=== PATIENT | male | born 1965 | race Caucasian/White ===

== ENCOUNTER → 2017-02-11 | Outpatient (CLI) | payer MEDICAID ==
[2017-02-11 13:03] LABS: HEMOGLOBIN 14.4 g/dL (14.1-18.0); LYMPH # 1.6 K/mm3 (0.7-4.5); LYMPH % 41.1 % (10-50)
[2017-02-11 14:19] LABS: BUN 18 mg/dL (7-18)
[2017-02-11 14:38] LABS: GFR (ESTIMATED) 78 ML/MIN (>60)
== END ==
LOC: CARL-LAB 08:12
PROVIDERS: Nurse Practitioner Family
DX: E78.1 Pure hyperglyceridemia (principal); K21.9 Gastro-esophageal reflux disease without esophagitis; Z79.899 Other long term (current) drug therapy

== ENCOUNTER 2017-06-10 11:03 | Emergency (ER) | payer MEDICAID ==
[~2017-06-10] VITALS: Ht 172.7 cm; Wt 88.5 kg
[2017-06-10] MEDS ORDERED: AVPAK EXTENDED100 MG PO (11:11)
[2017-06-10] MEDS ORDERED: METHADONE 10 MG10 MG PO (11:11)
--- OUTSIDE RECORDS SUMMARY | 2017-06-10 11:39 | External Medical Summary Rpt | CCD ---
Author Author , RAYSA TABARES Address Unknown Phone [email or web address] Team Providers Care Systems Eng Name Role Phone FABIAN SANFORD, Unavailable Unavailable MLuciano.P.S.CVerna, FABIAN SANFORD M.D.P.S.CVerna SANFORD, Unavailable Unavailable MD,PSC, FABIAN SANFORD MD,PSC AILIN PERALTA, Unavailable Unavailable AILIN PERALTA [facility] Unavailable Unavailable [facility], Unavailable Unavailable [facility], Unavailable Unavailable [facility] CHUERIN CH, YARED Unavailable Unavailable [facility] Unavailable Unavailable [place], Unavailable Unavailable [facility] Unavailable Unavailable EQUIPMENT, [facility] FINCHUM ELL, FINCHUM Unavailable Unavailable [facility] Unavailable Unavailable INC, [facility] RA PEDRAZA, Unavailable Unavailable RA PEDRAZA [facility], Unavailable Unavailable [facility] Unavailable Unavailable INC, [facility] JOSE MCFADDEN Unavailable Unavailable [facility] Unavailable Unavailable GROUP PS, [facility] Unavailable Unavailable [facility], [facility] Un[facility] Unavailable [facility], [facility] LORA KENNEDY, Unavailable Unavailable LORA KENNEDY VICTOR G, Unavailable Unavailable TAJ PRO JOSE T, Unavailable Unavailable RIDDHI SAAB MARSHALL Unavailable Unavailable [facility], Unavailable Unavailable [facility] Unavailable Unavailable [facility], Unavailable Unavailable [facility] Unavailable Unavailable AMBULANCE SE, [facility] SOKAN BAB, SOK[facility] BAB Unavailable Unavailable [facility], Unavailable Unavailable [facility] TAMAREN PEGGY, TAMAREN Unavailable Unavailable PEGGY TAMAREN, PAULINO, Unavailable Unavailable TAMAREN, PAULINO [facility] Unavailable Unavailable #[id number], [id number], Unavailable Unavailable [id number] Purpose Continuity of Care Document - 10-30-2007 through 2016 Problems Code Diagnosis DOS Provider Status [id number] PAIN IN 05-06-2017 FABIAN RIGHT POLLO SANFORD MD,PSC M5030 OT 05-06-2017 FABIAN CERVICAL MICKEY SANFORD MD,PSC DEGENERATIO N UNS CERV REGION M5136 OT 05-06-2017 FABIAN INTERVERTEB HI SANFORD MD,PSC DEGEN LUMBAR REGION [id number] SHELTER 05-06-2017 FABIAN CURRENT USE LINDA SANFORD OPIATE ,[facility] ANALGESIC J0140 ACUTE 03-04-2017 [facility] PANSINUSITI CLINIC S UNSPECIFIED J060 ACUTE 03-04-2017 [facility] LARYNGOPHAR [facility]INIC YNGITIS E781 PURE 02-11-2017 [facility] IDEMIA [facility] K219 GASTRO-ESOP 02-11-2017 [facility] DISEASE INC WITHOUT ESOPHAGITIS [id number] OTHER LONG 02-11-2017 [facility] CURRENT INC DRUG THERAPY [id number] OTHER 11-06-2016 FABIAN CERVICAL MICKEY SANFORD MD,PSC MID-CERV REG UNS LEVEL Z0100 ENCOUNTER 08-09-2016 ARACELIS EXAM EYES & VISION W/O ABNORMAL FIND M542 CERVICALGIA 07-16-2016 FABIAN SANFORD MD,PSC M545 LOW BACK 07-16-2016 FABIAN PAIN MD CLARIBEL,PSC E291 TESTICULAR 02-20-2016 [facility] HYPOFUNCTIO [place] N HOLDINGS N529 MALE 02-20-2016 [facility] ERECTILE [place] DYSFUNCTION HOLDINGS UNSPECIFIED N62 HYPERTROPHY 02-20-2016 [facility] OF BREAST [place] [facility]INGS R252 CRAMP AND 02-20-2016 [facility] SPASM [place] [facility]INGS R5383 OTHER 02-20-2016 [facility] FATIGUE [place] [facility] Z1321 ENCOUNTER 02-20-2016 [facility] FOR [place] SCREENING HOLDINGS FOR NUTRITIONAL DISORDER K210 GASTRO-ESOP 12-07-2015 [facility] DISEASE W/ ESOPHAGITIS K648 OTHER 12-07-2015 [facility] M6250 MUSCLE 11-16-2015 FABIAN WASTING & KAROL SANFORD MD,PSC UNSPECIFIED SITE K921 MELENA 10-26-2015 [facility] K5900 CONSTIPATIO 10-05-2015 JO[facility] CONTRERAS N UNSPECIFIED R12 HEARTBURN 10-05-2015 JO[facility] CONTRERAS Z800 FAMILY HX 10-05-2015 [facility] CONTRERAS MALIGNANT NEOPLASM DIGESTIVE ORGANS L46793 PAIN IN 08-08-2015 [facility] RIGHT ARM R200 ANESTHESIA 08-08-2015 [facility] OF SKIN 87866 UNSPEC 02-01-2015 [facility] EPILEPSY [place] WITHOUT HOLDINGS MENTION INTRACT EPILEPSY 23109 PAIN IN 02-01-2015 [facility] JOINT, [place] SHOULDER HOLDINGS REGION 7224 DEGENERATIO 07-22-2014 FABIAN N OF CL[facility]EL CERVICAL ,PSC INTERVERTEB RAL DISC V5869 LONG-TERM 07-22-2014 FABIAN (CURRENT) CLARIBEL USE OF ,PSC OTHER MEDICATIONS 61796 EFFUSION OF 07-20-2014 SOK[facility] BAB LOWER LEG JOINT V140 PERSONAL 07-20-2014 [facility] ALLERGY TO [facility]OSPITAL PENICILLIN V146 PERSONAL 07-20-2014 [facility] ALLERGY TO HOSPITAL ANALGESIC AGENT V1582 PERS HX 07-20-2014 [place] TOBACCO USE COMM[facility]ITY [facility] 1109 DERMATOPHYT 07-19-2014 [facility] OSIS OF CLINIC UNSPECIFIED SITE 7273 OTHER 07-19-2014 [facility] BURSITIS CLINIC DISORDERS 7821 RASH AND 07-19-2014 [facility] OTHER CLINIC NONSPECIFIC SKIN ERUPTION 63457 OTHER 06-30-2014 [place] CONVULSIONS [facility] V0481 NEED 05-27-2014 [facility] PROPHYLACTI CLINIC C VACCINATION &INOCULATIO N FLU 88074 ACUTE 05-24-2014 [facility] LARYNGITIS, CLINIC WITHOUT MENTION OF OBSTRUCTIO 14829 OBSTRUCTIVE 05-24-2014 [facility] CHRONIC CLINIC BRONCHITIS WITH EXACERBATIO N 34486 CRAMP OF 05-24-2014 [facility] LIMB [place] HOLDINGS 9598 INJURY 02-21-2014 [facility] OTH&UNSPEC [facility] OTH SPEC AMBULANCE SITES INCL SE MULTIPLE 81838 OTHER 10-05-2011 [facility] CHRONIC PAIN 7213 LUMBOSACRAL 10-05-2011 [facility] SPONDYLOSIS WITHOUT MYELOPATHY 9592 INJURY 10-05-2011 [facility] OTHER&UNSPE CIFIED SHOULDER&UP PER ARM 28784 GEN CONVUL 07-12-2011 TAMAREN PEGGY EPILEPSY W/O MENTION INTRACT EPILEPSY 496 CHRONIC 07-12-2011 TAMSTEVENN PEGGY AIRWAY OBSTRUCTION NEC 45332 SPASM OF 07-12-2011 TAMAREN PEGGY MUSCLE 7862 COUGH 07-12-2011 TAMAREN AUG 7230 CERVICALGIA 06-06-2011 [facility] ELL 7242 LUMBAGO 04-06-2011 [facility] 6827 CELLULITIS 01-11-2011 [facility] AND ABSCESS CLINIC PSC OF FOOT EXCEPT TOES 29308 OBSTRUCTIVE 11-23-2010 [facility] EQUIPMENT 90367 PAIN IN 11-10-2010 [facility] JOINT, CLINIC PSC LOWER LEG 7295 PAIN IN 11-10-2010 [facility] TISSUES OF LIMB 9599 INJURY 11-10-2010 [facility] OTHER AND [facility]IOLOG[facility] UNSPECIFIED ASSOCIAT UNSPECIFIED SITE V643 PROCEDURE 11-10-2010 [facility] NOT [facility]RI[facility] OUT FOR OTHER REASONS 07482 ASTHMA 09-25-2010 [facility] UNSPECIFIED CLINIC PSC WITH EXACERBATIO N 29264 CHEST PAIN 09-25-2010 [facility] UNSPECIFIED CLINIC PSC 9953 ALLERGY 09-25-2010 [facility] UNSPECIFIED CLINIC PSC NOT ELSEWHERE CLASSIFIED 490 BRONCHITIS 06-13-2010 [facility] NOT CLINIC PSC SPECIFIED ACUTE OR CHRONIC 30679 PAIN IN 01-23-2010 [facility] REGION AND PSC THIGH 56703 DEGEN 01-23-2010 [facility] LUMBAR/LUMB [facility]IOLOGY OSACRAL [facility]OCIATES INTERVERTEB PSC RAL DISC 12129 SHORTNESS 11-18-2009 [facility] OF BREATH [facility] PSC V7109 OBSERVATION 05-20-2009 [facility] OF OTHER RODERICK SANFORD M.D.P.S.C. MENTAL CONDITION 42217 UNSPECIFIED 04-04-2009 ARACELIS, SUBJECTIVE GILMA Varner VISUAL DISTURBANCE 9181 SUPERFICIAL 04-04-2009 ARACELIS INJURY OF GILMA Varner CORNEA 75621 PAIN IN OR 04-02-2009 ARACELIS, AROUND EYE GILMA W 9300 FOREIGN 03-30-2009 ARACELIS BODY IN GILMA W CORNEA 9309 FOREIGN 02-08-2009 [facility] BODY IN CLINIC PSC UNSPECIFIED SITE ON EXTERNAL EYE 2893 LYMPHADENIT 01-04-2009 M[facility] IS TAJ Noe UNSPECIFIED EXCEPT MESENTERIC 4760 CHRONIC 01-04-2009 M[facility] LARYNGITIS TAJ Noe 7249 OTHER 12-20-2008 [facility] UNSPECIFIED CLINIC PSC BACK DISORDER 7856 ENLARGEMENT 12-20-2008 [facility] OF LYMPH CLINIC PSC NODES 76241 OSTEOARTHRO 08-20-2008 FABIAN Cabello UNSPEC CLARIBEL, WHETHER [facility].At[facility]. GEN/LOC SHLDR REGION 7210 CERVICAL 08-20-2008 FABIAN SPONDYLOSIS CLARIBEL, WITHOUT [facility] MYELOPATHY 7212 THORACIC 08-20-2008 FABIAN SPONDYLOSIS CLARIBEL, WITHOUT M.At[facility]. MYELOPATHY 6929 CONTACT 04-23-2008 [facility] DERMATITIS& CLINIC [facility] OTHER ECZEMA DUE UNSPEC CAUSE V090 INFECTION 03-31-2008 [facility] W/[facility]GA [facility] NISMS RESISTANT PENICILLINS V4589 OTHER 03-23-2008 [facility] L STATUS OTHER 7244 THORACIC/WILTON 02-23-2008 FABIAN GONZALEZOSACRAL CLARIBEL, NEURITIS/RA [facility] DICULITIS UNSPEC 5199 UNSPECIFIED 02-04-2008 [facility] RESPIRATORY [facility] SYSTEM 7823 EDEMA 02-04-2008 [facility] PSC 52085 OTHER 02-04-2008 [facility] DYSPNEA AND HOSPITAL RESPIRATORY ABNORMALITI ES 3670 HYPERMETROP 11-13-2007 [facility] W 9219 UNSPECIFIED 11-09-2007 [facility] CONTUSION HOSPITAL OF EYE 88079 OSTEOARTHRO 10-30-2007 [facility] UNSPEC HOSPITAL WHETHER GEN/LOC UNSPEC SITE 27620 UNSPECIFIED 10-30-2007 [facility] ARTHROPATHY SITE UNSPECIFIED 20172 OTHER&UNSPE 10-30-2007 [facility] DISC HOSPITAL DISORDER UNSPEC REGION V571 OTHER 10-30-2007 [facility] PHYSICAL HOSPITAL THERAPY Medications Na ND Rx Da Fi Fi Am Da Di Ph RX Ph St me C No te ll ll ou ys ag ar # ys at rm s nt no ma ic us Or Da si cy ia de te s n re d CE 65 07 08 20 10 00 SO Ac FD 86 -2 -1 .0 00 PE ti IN 20 6- 8- 00 00 RS ve IR 17 20 20 56 76 17 17 90 FA 30 0 13 CO [address] CA UG PS UL E LO 45 07 08 30 30 00 SO Ac RA 80 -2 -1 .0 00 PE ti TA 20 6- 8- 00 00 RS ve DI 65 20 20 56 NE 08 17 17 90 FA 7 14 CO [address] ETHAN TA BL ET ME 59 07 08 21 6 00 SO Ac TH 74 -2 -1 .0 00 PE ti YL 60 6- 8- 00 00 RS ve LA 00 20 20 56 ED 10 17 17 90 FA NI 3 15 CO SO LY LO NE DR 4 UG MG DO SE PK PH 51 06 07 90 30 00 SO Ac EN 67 -1 -0 .0 00 PE ti YT 24 3- 7- 00 00 RS ve OI 11 20 20 56 N 10 17 17 59 FA SO 3 13 CO D LY EX T DR 10 UG 0 MG CA P FE 68 05 06 30 30 00 SO Ac NO 18 -0 -0 .0 00 PE ti FI 00 9- 2- 00 00 RS ve BR 36 20 20 56 AT 20 17 17 32 FA E 9 89 CO [address] ETHAN TA BL ET PA 65 05 06 30 30 00 SO Ac NT 86 -0 -0 .0 00 PE ti OP 20 9- 2- 00 00 RS ve RA 56 20 20 56 ZO 09 17 17 32 FA LE 0 90 CO LY SO D DR UG 40 MG TA B PH 51 05 06 90 30 00 SO Ac EN 67 -0 -0 .0 00 PE ti YT 24 9- 2- 00 00 RS ve OI 11 20 20 56 N 10 17 17 32 FA SO 3 91 CO D LY EX T DR 10 UG 0 MG CA P AV 00 07 07 0 [address] Ac EL 08 -1 -1 .0 PE 83 ON ti OX 51 1- 1- 00 RS 11 E ve 73 20 20 DI 40 30 11 11 FA XI 0 1 CO E MG LY D TA DR BL UG ET LA 00 07 07 0 [address] Ac ED 59 -1 -1 .0 PE 83 ON ti NI 15 1- 1- 00 RS 13 E ve SO 44 20 20 DI NE 20 11 11 FA XI 5 CO E [address] ETHAN TA BL ET 49 06 06 [address] Ac 88 -1 -1 .0 PK 17 ON ti 40 0- 0- 00 IN 14 E ve 60 20 20 S 9 DI [address] DENISE 6 UG E D CO MP AN Y IN C GARCIA 53 06 06 [address] Ac LF 74 -0 -0 .0 PK 17 ON ti AM 60 9- 9- 00 IN 12 E ve ET 27 20 20 S 6 DI HO 20 11 11 XI XA 5 UG E ZO D LE CO -T MP MP AN Y DS IN C TA BL ET 00 02 02 5 [address] Ac 00 -2 -2 .0 PK 15 ON ti 60 3- 3- 00 IN 28 E ve 11 20 20 S 6 DI [address] DENISE 1 UG E D CO MP AN Y IN C AD 00 02 02 5 [address] Ac VA 17 -2 -2 .0 PK 15 ON ti IR 30 3- 3- 00 IN 28 E ve 69 20 20 S 7 DI [address] DENISE 0- 0 UG E 50 D CO DI MP SK AN US Y IN C LA 00 02 02 [address] Ac ED 60 -2 -2 .0 PK 15 ON ti NI 35 1- 1- 00 IN 22 E ve SO 33 20 20 S 8 DI NE [address] DENISE 2 UG E 10 D CO MG MP AN TA Y BL IN ET C 59 02 02 5 8. [address] Ac 31 -2 -2 50 PK 15 ON ti 00 1- 1- 0 IN 22 E ve 57 20 20 S 9 DI [address] DENISE 0 UG E D CO MP AN Y IN C 51 02 02 5 [address] Ac 66 -2 -2 .0 PK 15 ON ti 00 1- 1- 00 IN 23 E ve 93 20 20 S 0 DI [address] DENISE 0 UG E D CO MP AN Y IN C 00 02 02 [address] Ac 37 -2 -2 .0 PK 15 ON ti 88 1- 1- 00 IN 23 E ve 50 20 20 S 4 DI [address] DENISE 1 UG E D CO MP AN Y IN C SP 00 01 02 2 [address] Ac IR 59 -0 -0 .0 PK 14 ON ti IV 70 3- 7- 00 IN 02 E ve A 07 20 20 S 9 DI [address] DENISE 1 UG E MC D G CO CP MP -H AN AN Y DI IN BOLDEN C LE R 59 11 01 2 [address] Ac 31 -0 -1 .0 PK 12 ON ti 00 9- 0- 00 IN 37 E ve 57 20 20 S 1 DI [address] DENISE 0 UG E D CO MP AN Y IN C LA 00 01 01 [address] Ac ED 60 -0 -0 .0 PK 14 ON ti NI 35 3- 3- 00 IN 02 E ve SO 33 20 20 S 7 DI NE [address] DENISE 2 UG E 10 D CO MG MP AN TA Y BL IN ET C AV 00 01 01 [address] Ac EL 08 -0 -0 .0 PK 14 ON ti OX 51 3- 3- 00 IN 02 E ve 73 20 20 S 8 DI [address] DENISE 0 1 UG E MG D CO TA MP BL AN ET Y IN C SP 00 01 01 2 [address] Ac IR 59 -0 -0 .0 PK 14 ON ti IV 70 3- 3- 00 IN 02 E ve A 07 20 20 S 9 DI [address] DENISE 1 UG E MC D G CO CP MP -H AN AN Y DI IN BOLDEN C LE R 00 01 01 [address] Ac 06 -0 -0 .0 PK 14 ON ti 90 3 00 IN 03 E ve 47 20 20 S 0 DI [address] DENISE 7 UG E D CO MP AN Y IN C 59 11 12 2 [address] Ac 31 -0 -0 .0 PK 12 ON ti 00 9 IN 37 E ve 57 20 20 S 1 DI [address] DENISE 0 UG E D CO MP AN Y IN C LA 00 11 11 [address] Ac ED 60 -2 -2 .0 PK 13 ON ti NI 35 9- 9- 00 IN 07 E ve SO 33 20 20 S 2 DI NE [address] DENISE 2 UG E 10 D CO MG MP AN TA Y BL IN ET C BE 68 11 11 [address] Ac NZ 38 -2 -2 .0 PK 13 ON ti ON 20 IN 07 E ve AT 24 20 20 S 1 DI AT [address] DENISE E 1 UG E 20 D 0 CO MG MP AN CA Y PS IN UL C E 00 11 11 [address] Ac 37 -2 -2 .0 PK 13 ON ti 88 9- 9- 00 IN 07 E ve 50 20 20 S 0 DI [address] DENISE 1 UG E D CO MP AN Y IN C CI 16 11 11 [address] Ac LA 57 -1 -1 .0 PK 12 ON ti OF 10 2- 2- 00 IN 52 E ve LO 41 20 20 S 5 DI XA [address] DENISE CI 0 UG E N D HC CO L MP 50 AN 0 Y MG IN C TA B AV 00 11 11 3. [address] Ac EL 08 -0 -0 00 PK 12 ON ti OX 51 9- 9- 0 IN 37 E ve 73 20 20 S 0 DI [address] XI 0 1 UG E MG D CO TA MP BL AN ET Y IN C 59 11 11 2 [address] Ac 31 -0 -0 .0 PK 12 ON ti 00 9- 9- 00 IN 37 E ve 57 20 20 S 1 DI [address] XI 0 UG E D CO MP AN Y IN C 00 11 11 [address] Ac 14 -0 -0 .0 PK 12 ON ti 31 9- 9- 00 IN 36 E ve 47 20 20 S 9 DI [address] XI 0 UG E D CO MP AN Y IN C 59 04 08 2 17 30 HO 10 TA Ac 31 -0 -1 .0 PK 07 MA ti 00 7- 2- 00 IN 33 RE ve 57 20 20 S 9 N [address] JA 0 UG NE T CO MP AN Y IN C 59 04 07 2 17 30 HO 10 TA Ac 31 -0 -0 .0 PK 07 MA ti 00 7- 1- 00 IN 33 RE ve 57 20 20 S 9 N [address] JA 0 UG NE T CO MP AN Y IN C 59 04 05 2 17 30 HO 10 TA Ac 31 -0 -1 .0 PK 07 MA ti 00 7- 3- 00 IN 33 RE ve 57 20 20 S 9 N [address] JA 0 UG NE T CO MP AN Y IN C 68 04 04 20 10 HO 10 TA Ac 77 -1 -1 .0 PK 06 MA ti 40 6- 6- 00 IN 52 RE ve 12 20 20 S 2 N [address] JA 0 UG NE T CO MP AN Y IN C 59 12 04 2 17 32 HO 10 TA Ac 31 -0 -0 .0 PK 02 MA ti 00 7- 7- 00 IN 34 RE ve 57 20 20 S 3 N [address] JA 0 UG NE T CO MP AN Y IN C 00 04 04 30 12 HO 10 TA Ac 14 -0 -0 .0 PK 06 MA ti 31 7- 7- 00 IN 21 RE ve 47 20 20 S 4 N [address] JA 0 UG NE T CO MP AN Y IN C AV 00 04 04 10 10 HO 10 TA Ac EL 08 -0 -0 .0 PK 06 MA ti OX 51 7- 7- 00 IN 21 RE ve 73 20 20 S 5 N [address] LYNN 0 1 UG NE MG T CO TA MP BL AN ET Y IN C FL 00 04 04 2 12 30 HO 10 TA Ac OV 17 -0 -0 .0 PK 06 MA ti EN 30 7- 7- 00 IN 21 RE ve T 71 20 20 S 6 N HF [address] LEAH Preciado 0 UG NE 11 T 0 CO MC MP G AN IN Y BOLDEN IN LE C R 51 04 04 2 30 30 HO 10 TA Ac 66 -0 -0 .0 PK 06 MA ti 00 7- 7- 00 IN 21 RE ve 93 20 20 S 7 N [address] LYNN 0 UG NE T CO MP AN Y IN C PH 62 04 04 2 90 30 HO 10 TA Ac EN 75 -0 -0 .0 PK 06 MA ti YT 60 7- 7- 00 IN 21 RE ve OI 40 20 20 S 8 N N [address] LYNN SO 1 UG NE D T EX CO T MP 10 AN 0 Y MG IN C CA P 63 01 01 00 60 30 HO 10 FL Ac 85 -1 -2 .0 PK 03 IN ti 70 1- 8- 00 IN 48 CH ve 11 20 20 S 5 UM 13 10 10 3 UG EL LE CO N J IN C 59 12 01 01 17 32 HO 10 TA Ac 31 -0 -2 .0 PK 02 MA ti 00 7- 8- 00 IN 34 RE ve 57 20 20 S 3 N [address] LYNN 0 UG NE T CO IN C 59 12 12 00 17 32 HO 10 TA Ac 31 -0 -1 .0 PK 02 MA ti 00 7- 7- 00 IN 34 RE ve 57 20 20 S 3 N [address] LYNN 0 UG NE T CO IN C 68 12 12 00 20 10 HO 10 TA Ac 77 -0 -1 .0 PK 02 MA ti 40 7- 7- 00 IN 34 RE ve 12 20 20 S 4 N [address] LYNN 0 UG NE T CO IN C MU 00 12 12 00 22 7 HO 10 TA Ac PI 16 -0 -1 .0 PK 02 MA ti RO 80 7- 7- 00 IN 34 RE ve CI 35 20 20 S 5 N N [address] LYNN 2% 2 UG NE T OI CO NT ME IN NT C 00 12 12 00 40 16 HO 10 TA Ac 14 -0 -1 .0 PK 02 MA ti 31 7- 7- 00 IN 34 RE ve 47 20 20 S 6 N [address] LYNN 0 UG NE T CO IN C 24 10 11 00 30 30 HO 10 TA Ac 38 -1 -0 .0 PK 00 MA ti 50 9- 5- 00 IN 49 RE ve 17 20 20 S 2 N [address] LYNN 5 UG NE T CO IN C 00 10 11 00 40 16 HO 10 TA Ac 14 -1 -0 .0 PK 00 MA ti 31 9- 5- 00 IN 49 RE ve 47 20 20 S 4 N [address] LYNN 1 UG NE T CO IN C CL 00 10 11 00 20 10 HO 10 TA Ac AR 05 -1 -0 .0 PK 00 MA ti IT 40 9- 5- 00 IN 49 RE ve HR 03 20 20 S 1 N OM [address] LYNN YC 1 UG NE IN T CO 50 0 IN MG C TA BL ET 59 10 11 00 17 30 HO 10 TA Ac 31 -1 -0 .0 PK 00 MA ti 00 9- 5- 00 IN 49 RE ve 57 20 20 S 3 N [address] LYNN 0 UG NE T CO IN C LA 61 09 09 00 5. 24 WA 70 MA Ac ED 31 -0 -1 00 L- 02 RS ti NI 40 2- 0- 0 MA 51 BOLDEN ve SO 63 20 20 RT 4 LL LO 70 09 09 NE 5 PH GR AR EG AC MA OR CY Y 1% W #[address] OP TO 61 08 09 00 5. 24 WA 70 No Ac BR 31 -2 -1 00 L- 01 t ti AM 40 6- 0- 0 MA 61 Av ve YC 64 20 20 RT 0 ai IN 30 09 09 la 5 PH bl 0. AR e 3% MA CY EY E #4 DR 93 OP S 00 09 09 00 5. 25 WA 70 MA Ac 99 -0 -1 00 L- 02 RS ti 80 2- 0- 0 MA 51 BOLDEN ve 31 20 20 RT 3 LL 50 09 09 5 PH GR AR EG MA OR CY Y W #4 93 68 06 06 00 25 7 HO 99 TA Ac 46 -0 -1 .0 PK 63 MA ti 20 9- 8- 00 IN 40 RE ve 14 20 20 S N [address] LYNN 5 UG NE T CO IN C LA 00 05 06 [address] Ac OV 08 -1 -0 .4 PK 57 ON ti EN 51 8- 4- 00 IN 56 E ve TI 13 20 20 S DI L [address] DENISE HF 1 UG E A D 90 CO MC IN G C IN BOLDEN LE R FL 00 05 06 [address] Ac OV 17 -1 -0 .5 PK 57 ON ti EN 30 8- 4- 99 IN 57 E ve T 71 20 20 S DI HF [address] CAMELIA Preciado 0 UG E 44 D CO MC G IN IN C BOLDEN LE R 63 05 06 00 [address] Ac 30 -1 -0 .0 PK 57 ON ti 40 8- 4- 00 IN 59 E ve 72 20 20 S DI [address] DENISE 0 UG E D CO IN C 00 05 06 00 [address] Ac 14 -1 -0 .0 PK 57 ON ti 31 8- 4- 00 IN 58 E ve 47 20 20 S DI [address] DENISE 1 UG E D CO IN C RO 00 01 04 02 [address] Ac PI 37 -1 -2 .0 PK 18 ON ti NI 85 3- 3- 00 IN 70 E ve RO 50 20 20 S DI LE [address] DENISE 1 UG E HC D L CO 1 MG IN C TA BL ET PH 00 01 04 02 [address] Ac EN 37 -1 -2 0. PK 18 ON ti YT 81 3- 3- 00 IN 68 E ve OI 56 20 20 0 S DI N [address] DENISE SO 1 UG E D D EX CO T 10 IN 0 C MG CA P AZ 64 04 04 00 6. 5 HO 99 TA Ac IT 67 -1 -2 00 PK 47 MA ti HR 90 5- 3- 0 IN 83 RE ve OM 96 20 20 S N YC [address] LYNN IN 5 UG NE T 25 CO 0 MG IN C TA BL ET TI 00 04 04 00 30 15 HO 99 TA Ac ZA 18 -1 -2 .0 PK 47 MA ti NI 54 5- 3- 00 IN 84 RE ve DI 40 20 20 S N NE [address] LYNN 1 UG NE HC T L CO 4 MG IN C TA BL ET 00 04 04 00 30 12 HO 99 TA Ac 14 -1 -2 .0 PK 47 MA ti 31 5- 3- 00 IN 85 RE ve 47 20 20 S N [address] LYNN 1 UG NE T CO IN C 59 04 04 00 [address] Ac 31 -1 -2 .0 PK 47 ON ti 00 5- 3- 00 IN 78 E ve 57 20 20 S DI [address] DENISE 0 UG E D CO IN C 59 01 03 02 [address] Ac 31 -1 -2 .0 PK 18 ON ti 00 3- 6- 00 IN 69 E ve 57 20 20 S DI [address] DENISE 0 UG E D CO IN C PH 00 01 02 [address] Ac EN 37 -1 -2 0. PK 18 ON ti YT 81 3- 6- 00 IN 68 E ve OI 56 20 20 0 S DI N [address] CAMELIA MALHOTRA 1 UG E D D EX CO T 10 IN 0 C MG CA P RO 00 01 02 01 [address] Ac PI 37 -1 -2 .0 PK 18 ON ti NI 85 3- 6- 00 IN 70 E ve RO 50 20 20 S DI LE [address] DENISE 1 UG E HC D L CO 1 MG IN C TA BL ET 59 01 02 01 [address] Ac 31 -1 -2 .0 PK 18 ON ti 00 3- 6- 00 IN 69 E ve 57 20 20 S DI [address] DENISE 0 UG E D CO IN C RO 00 01 01 00 [address] Ac PI 37 -1 -3 .0 PK 18 ON ti NI 85 3- 0- 00 IN 70 E ve RO 50 20 20 S DI LE [address] DENISE 1 UG E HC D L CO 1 MG IN C TA BL ET TI 00 01 01 00 [address] Ac ZA 18 -1 -3 .0 PK 18 ON ti NI 54 3- 0- 00 IN 71 E ve DI 40 20 20 S DI NE [address] DENISE 1 UG E HC D L CO 4 MG IN C TA BL ET PH 00 01 01 00 [address] Ac EN 37 -1 -3 0. PK 18 ON ti YT 81 3- 0- 00 IN 68 E ve OI 56 20 20 0 S DI N [address] CAMELIA MALHOTRA 1 UG E D D EX CO T 10 IN 0 C MG CA P 59 01 01 00 [address] Ac 31 -1 -3 .0 PK 18 ON ti 00 3- 0- 00 IN 69 E ve 57 20 20 S DI [address] DENISE 0 UG E D CO IN C PH 62 08 01 02 27 30 SO 29 TA Ac EN 75 -2 -0 0. PE 12 MA ti YT 60 0- 1- 00 RS 63 RE ve OI 40 20 20 0 N N 20 08 09 FA JA SO 3 CO NE D LY T EX T DR 10 UG 0 MG CA P CY 59 11 12 00 90 30 SO 29 FL Ac CL 74 -1 -0 .0 PE 87 IN ti OB 60 8- 4- 00 RS 38 CH ve EN 17 20 20 UM ZA 71 08 08 FA LA 0 CO EL IN LY LE E N 10 DR J UG MG TA BL ET BA 00 08 11 01 60 30 SO 29 TA Ac CL 83 -2 -0 .0 PE 18 MA ti OF 21 7- 7- 00 RS 01 RE ve EN 02 20 20 N 45 08 08 FA JA 10 0 CO NE LY T MG DR TA UG BL ET RO 00 09 09 00 30 30 SO 29 No Ac PI 37 -1 -2 .0 PE 37 t ti NI 85 9- 6- 00 RS 88 Av ve RO 55 20 20 ai LE 00 08 08 FA la 1 CO bl HC LY e L 0. DR 5 UG MG TA BL ET PH 62 08 09 01 27 30 SO 29 No Ac EN 75 -2 -2 0. PE 12 t ti YT 60 0- 6- 00 RS 63 Av ve OI 40 20 20 0 ai N 20 08 08 FA la SO 3 CO bl D LY e EX T DR 10 UG 0 MG CA P LA 00 08 09 00 6. 15 SO 29 No Ac OV 08 -2 -1 70 PE 18 t ti EN 51 7- 1- 0 RS 02 Av ve TI 13 20 20 ai L 20 08 08 FA la HF 1 CO bl A LY e 90 DR MC UG G IN BOLDEN LE R BA 00 08 09 00 60 30 SO 29 No Ac CL 83 -2 -1 .0 PE 18 t ti OF 21 7- 1- 00 RS 01 Av ve EN 02 20 20 ai 45 08 08 FA la 10 0 CO bl LY e MG DR TA UG BL ET CY 59 08 08 00 90 30 SO 29 No Ac CL 74 -2 -2 .0 PE 12 t ti OB 60 1- 8- 00 RS 92 Av ve EN 17 20 20 ai ZA 71 08 08 FA la LA 0 CO bl IN LY e E 10 DR UG MG TA BL ET GARCIA 00 08 08 00 20 10 SO 29 No Ac LF 60 -2 -2 .0 PE 12 t ti AM 35 0- 8- 00 RS 08 Av ve ET 78 20 20 ai HO 12 08 08 FA la XA 8 CO bl ZO LY e LE -T DR GAO UG DS TA BL ET PH 62 08 08 00 27 30 SO 29 No Ac EN 75 -2 -2 0. PE 12 t ti YT 60 0- 8- 00 RS 63 Av ve OI 40 20 20 0 ai N 20 08 08 FA la SO 3 CO bl D LY e EX T DR 10 UG 0 MG CA P TR 65 08 08 00 30 7 SO 29 No Ac AM 16 -2 -2 .0 PE 12 t ti AD 20 0- 8- 00 RS 09 Av ve OL 62 20 20 ai 71 08 08 FA la HC 1 CO bl L LY e 50 DR MG UG TA BL ET 62 07 07 00 30 30 SO 28 No Ac 79 -0 -1 .0 PE 77 t ti 40 3- 7- 00 RS 91 Av ve 75 20 20 ai 00 08 08 FA la 1 CO bl LY e DR UG 63 05 07 01 60 30 SO 28 No Ac 85 -2 -0 .0 PE 49 t ti 70 3- 3- 00 RS 63 Av ve 11 20 20 ai 13 08 08 FA la 3 CO bl LY e UG CY 59 03 07 01 90 30 SO 27 No Ac CL 74 -2 -0 .0 PE 96 t ti OB 60 2- 3- 00 RS 77 Av ve EN 17 20 20 ai ZA 71 08 08 FA la LA 0 CO bl IN LY e E 10 UG MG TA BL ET 63 05 06 00 60 30 SO 28 No Ac 85 -2 -0 .0 PE 49 t ti 70 3- 5- 00 RS 63 Av ve 11 20 20 ai 13 08 08 FA la 3 CO bl LY e UG TO 61 04 04 00 5. 24 WA 69 No Ac BR 31 -1 -2 00 L- 43 t ti AM 40 0- 4- 0 MA 68 Av ve YC 64 20 20 RT 4 ai IN 30 08 08 la 5 PH bl 0. M e 3% 10 -0 EY [address] OP S 63 03 04 00 60 30 SO 27 No Ac 85 -2 -1 .0 PE 96 t ti 70 2- 0- 00 RS 76 Av ve 11 20 20 ai 13 08 08 FA la 3 CO bl LY e UG CY 59 03 04 00 90 30 SO 27 No Ac CL 74 -2 -1 .0 PE 96 t ti OB 60 2- 0- 00 RS 77 Av ve EN 17 20 20 ai ZA 71 08 08 FA la LA 0 CO bl IN LY e E 10 DR UG MG TA BL ET PH 62 05 04 05 90 30 SO 25 No Ac EN 75 -2 -0 .0 PE 23 t ti YT 60 3- 7- 00 RS 85 Av ve OI 40 20 20 ai N 20 07 08 FA la SO 3 CO bl D LY e EX T DR 10 UG 0 MG CA P Results Labs Lab Lab Date Result Refere Interp Status Commen Order Detail nces retati t Range on Serum or plasma phenytoin measurement (m (06-04-2017 08:15) Serum 10-31-2 = 1.9 10-20 complet or 017 ug/ml ed plasma 08:15 phenyto in measure ment (m Comprehensive metabolic panel (06-04-2017 08:15) Protein 06-04-2 = 6.9 6.4-8.2 complet total 017 gm/dL ed ser/asif 08:15 s ALT 06-04-2 = 55 12-78 complet (SGPT) 017 U/L ed ser/asif 08:15 s Serum 06-04-2 = 33 15-37 complet or 017 U/L ed plasma 08:15 asparta te aminotr ansfera Serum 06-04-2 = 139 136-145 complet sodium 017 mmoL/L ed measure 08:15 ment Serum 06-04-2 = 3.9 3.5-5.1 complet potassi 017 mmoL/L ed um 08:15 measure ment Serum 06-04-2 = 144 74-106 complet or 017 mg/dL ed plasma 08:15 glucose measure ment (mas Serum 06-04-2 = 3.2 1.3-3.2 complet globuli 017 gm/dL ed n 08:15 measure ment (mass/v olume) Estimat 06-04-2 = 70 >60 complet ed 017 ML/MIN ed glomeru 08:15 lar filtrat ion rate (GF Comment: REFERENCE RANGE: >60 ML/MIN/1.73 SQUARE METERS Comment: If this patient is -Yemeni, then multiply the Comment: result by 1.210. Serum --2 = 1.1 0.70-1. complet or 017 mg/dL 30 ed plasma 08:15 creatin ine measure ment ( Carbon 06-04-2 = 27 21.0-32 complet dioxide 017 mmoL/L .0 ed 08:15 measure ment Serum 06-04-2 = 103 98-107 complet or 017 mmoL/L ed plasma 08:15 chlorid e measure ment (mo Serum = 8.7 8.5-10. complet or 017 mg/dL 1 ed plasma 08:15 calcium measure ment (mas Serum = 12 7-18 complet or 017 mg/dL ed plasma 08:15 urea nitroge n measure men Serum = 0.1 0.2-1.0 complet or 017 mg/dL ed plasma 08:15 total bilirub in measure m Serum = 125 46-116 complet or 017 U/L ed plasma 08:15 alkalin e phospha tase claudia Serum = 3.7 3.4-5.0 complet or 017 gm/dL ed plasma 08:15 albumin measure ment (mas Serum = 1.2 1.1-1.8 complet or 017 ed plasma 08:15 albumin /globul in mass ra CBC w auto diff (06-04-2017 08:15) Blood = 4.3 4.8-10. complet leukocy 017 K/MM3 8 ed kristin 08:15 count (number /volume ) Automat = 12.4 11.5-17 complet ed 017 % .5 ed erythro 08:15 cyte distrib ution width Red = 4.70 4.6-6.2 complet blood 017 M/mm3 ed cell 08:15 count Blood = 245 142-424 complet platele 017 K/mm3 ed t count 08:15 Automat = 8.6 7.4-10. complet ed 017 fl 4 ed blood 08:15 platele t mean volume claudia Marshall % = 7.1 % 1.7-9.3 complet 017 ed 08:15 Absolut = 0.3 0.1-1.0 complet e 017 K/mm3 ed monocyt 08:15 e count Automat = 89.1 82.2-97 complet ed 017 fl .8 ed erythro 08:15 cyte mean corpusc ular v Automat = 33.7 31.8-35 complet ed 017 g/dl .4 ed erythro 08:15 cyte mean corpusc ular h Mean = 30.0 27-31.2 complet corpusc 017 pg ed ular 08:15 hemoglo bin (MCH) determ Lymphoc = 40.5 10-50 complet yte 017 % ed count, 08:15 blood, automat ed Absolut = 1.8 0.7-4.5 complet e 017 K/mm3 ed lymphoc 08:15 yte count Blood = 14.1 14.1-18 complet hemoglo 017 g/dL .0 ed bin 08:15 measure ment (mass/v olum Blood = 41.9 42.0-52 complet hematoc 017 % .0 ed rit 08:15 (volume fractio n) Granulo = 47.6 37.0-80 complet cyte 017 % .0 ed percent 08:15 age Blood = 2.1 1.3-8.0 complet granulo 017 K/mm3 ed cytes 08:15 automat ed count (numb Automat = 3.4 % 0.1-12. complet ed 017 0 ed blood 08:15 eosinop hils/10 0 leukocy t Automat = 0.2 0.0-0.4 complet ed 017 K/mm3 ed blood 08:15 eosinop hil count Baso % = 1.4 % 0.1-2.0 complet 017 ed 08:15 Automat = 0.1 0-0.2 complet ed 017 K/MM3 ed blood 08:15 basophi l count (count/ vo Encounters Encounter Start End Date Code Location Performer Type Date [facility] - 7 7 [facility] R[facility] - 7 7 [facility] [place] [address] [facility] [place] [address] [facility] [address] RAJAN - 1 1 [facility] RAJAN - 0 0 [facility] RAJAN - 8 8 [facility] RA[facility] - 8 8 [facility] - 8 8 [facility] - 8 8 [facility] RAJ[facility] - 8 8 [facility] RAJAN - 8 8 [facility] RA[facility] - 8 8 [facility] RA[facility] - 8 8 [facility]
--- OUTSIDE RECORDS SUMMARY | 2017-06-10 11:39 | External Medical Summary Rpt | CCD ---
Author Author , RAYSA TABARES Address Unknown Phone [email or web address] Care Team Providers Care Switchboard Installer Name Role Phone FABIAN SANFORD, Unavailable Unavailable MLuciano.P.S.CVerna, FABIAN SANFORD M.D.P.S.CVerna SANFORD, Unavailable Unavailable MD,PSC, FABIAN SANFORD MD,PSC AILIN PERALTA, Unavailable Unavailable AILIN PERALTA [facility] Unavailable Unavailable [facility], Unavailable Unavailable [facility], Unavailable Unavailable [facility], YARED Unavailable Unavailable [facility] Unavailable Unavailable [place], Unavailable [...] [facility] JOSE MCFADDEN Unavailable Unavailable [facility] Unavailable Unavailable GROUP PS, [facility] Unavailable Unavailable [facility], [facility] Unavailable Unavailable [facility], [facility] LORA KENNEDY, Unavailable Unavailable LORA KENNEDY VICTOR G, Unavailable Unavailable TAJ PRO JOSE T, Unavailable Unavailable RIDDHI SAAB MARSHALL Unavailable Unavailable [facility], Unavailable Unavailable [facility] Unavailable Unavailable [facility], Unavailable Unavailable [facility] Unavailable Unavailable AMBULANCE SE, [facility] SOKAN BAB, [facility] Unavailable Unavailable [facility], Unavailable Unavailable [facility] TAMAREN PEGGY, TAMAREN Unavailable Unavailable PEGGY TAMAREN, PAULINO, Unavailable Unavailable TAMAREN, PAULINO [facility] Unavailable Unavailable #[id number], [id number], Unavailable Unavailable [facility][id number] Purpose Continuity of Care Document - 10-30-2007 through 2016 Problems Code Diagnosis DOS Provider Status [id number] PAIN IN 05-06-2017 FABIAN RIGHT POLLO SANFORD MD,PSC M5030 OT 05-06-2017 FABIAN CERVICAL MICKEY SANFORD MD,PSC DEGENERATIO N UNS CERV REGION M5136 OT 05-06-2017 FABIAN INTERVERTEB HI SANFORD MD,PSC DEGEN LUMBAR REGION L00349 SENIOR LIVING 05-06-2017 FABIAN CURRENT USE LINDA SANFORD OPIATE ,[facility] ANALGESIC J0140 ACUTE 03-04-2017 [facility] PANSINUSITI CLINIC S UNSPECIFIED J060 ACUTE 03-04-2017 [facility] LARYNGOPHAR CLINIC YNGITIS E781 PURE 02-11-2017 [facility] IDEMIA INC K219 GASTRO-ESOP 02-11-2017 [facility] H [facility]UX [facility] DISEASE INC WITHOUT ESOPHAGITIS I21248 OTHER LONG 02-11-2017 [facility] TERM [facility] CURRENT INC DRUG THERAPY H60834 OTHER 11-06-2016 FABIAN CERVICAL MICKEY SANFORD MD,PSC [...] R252 CRAMP AND 02-20-2016 [facility] SPASM TYLRO HOLDINGS R5383 OTHER 02-20-2016 [facility] FATIGUE YTLOR HOLDINGS Z1321 ENCOUNTER 02-20-2016 [facility] FOR [place] SCREENING HOLDINGS FOR NUTRITIONAL DISORDER K210 GASTRO-ESOP 12-07-2015 [facility] DISEASE W/ ESOPHAGITIS K648 OTHER 12-07-2015 [facility] M6250 MUSCLE 11-16-2015 FABIAN WASTING & KAROL SANFORD MD,PSC UNSPECIFIED SITE K921 MELENA 10-26-2015 [facility] K5900 CONSTIPATIO 10-05-2015 [facility] CONTRERAS N UNSPECIFIED R12 HEARTBURN 10-05-2015 [facility] CONTRERAS Z800 FAMILY HX 10-05-2015 [facility] CONTRERAS MALIGNANT NEOPLASM DIGESTIVE ORGANS [id number] PAIN IN 08-08-2015 [facility] RIGHT ARM R200 ANESTHESIA 08-08-2015 [facility] WAR OF SKIN 27202 UNSPEC 02-01-2015 LAB [facility] EPILEPSY [place] WITHOUT HOLDINGS MENTION INTRACT EPILEPSY 46846 PAIN IN 02-01-2015 LAB [facility] JOINT, [place] SHOULDER HOLDINGS REGION 7224 DEGENERATIO 07-22-2014 FABIAN N OF [place] CERVICAL ,PSC INTERVERTEB RAL DISC V5869 LONG-TERM 07-22-2014 FABIAN (CURRENT) [place] USE OF ,PSC OTHER MEDICATIONS 40096 EFFUSION OF 07-20-2014 SOK[facility] BAB LOWER LEG JOINT V140 PERSONAL 07-20-2014 [facility] ALLERGY TO HOSPITAL PENICILLIN V146 PERSONAL 07-20-2014 [facility] ALLERGY TO HOSPITAL ANALGESIC AGENT V1582 PERS HX 07-20-2014 [place] TOBACCO USE COMM[facility]ITY [facility] 1109 DERMATOPHYT 07-19-2014 [facility] OSIS OF CLINIC UNSPECIFIED SITE 7273 OTHER 07-19-2014 [facility] BURSITIS CLINIC DISORDERS 7821 RASH AND 07-19-2014 [facility] OTHER CLINIC NONSPECIFIC SKIN ERUPTION 60708 OTHER 06-30-[address] [place] [address] [facility] V0481 NEED 05-27-2014 [facility] PROPHYLACTI CLINIC C VACCINATION &INOCULATIO N FLU 36917 ACUTE 05-24-2014 [facility] LARYNGITIS, CLINIC WITHOUT MENTION OF OBSTRUCTIO 80835 OBSTRUCTIVE 05-24-2014 [facility] CHRONIC CLINIC BRONCHITIS WITH EXACERBATIO N 86172 CRAMP OF 05-24-2014 LAB [facility] LIMB [place] HOLDINGS 9598 INJURY 02-21-2014 [facility] OTH&UNSPEC [facility] OTH SPEC AMBULANCE SITES INCL SE MULTIPLE 89595 OTHER 10-05-2011 [facility] CHRONIC PAIN 7213 LUMBOSACRAL 10-05-2011 [facility] SPONDYLOSIS WITHOUT MYELOPATHY 9592 INJURY 10-05-2011 [facility] OTHER&UNSPE CIFIED SHOULDER&UP PER ARM 99225 GEN CONVUL 07-12-2011 TAMAREN PEGGY EPILEPSY W/O MENTION INTRACT EPILEPSY 496 CHRONIC 07-12-2011 TAMSTEVENN PEGGY AIRWAY OBSTRUCTION NEC 02427 SPASM OF 07-12-2011 TAMAREN PEGGY MUSCLE 7862 COUGH 07-12-2011 TAMAR[facility] AUG 7230 CERVICALGIA 06-06-2011 FINCH[facility] ELL 7242 LUMBAGO 04-06-2011 [facility] 6827 CELLULITIS 01-11-2011 [facility] AND ABSCESS CLINIC PSC OF FOOT EXCEPT TOES 38624 OBSTRUCTIVE 11-23-2010 [employer] SLEEP MEDICAL APNEA EQUIPMENT 35818 PAIN IN 11-10-2010 [facility] JOINT, CLINIC PSC LOWER LEG 7295 PAIN IN 11-10-2010 [facility] TISSUES OF LIMB 9599 INJURY 11-10-2010 [facility] OTHER AND RADIOLOGY UNSPECIFIED ASSOCIAT UNSPECIFIED SITE V643 PROCEDURE 11-10-2010 [facility] NOT [facility]RI[facility] OUT FOR OTHER REASONS 59306 ASTHMA 09-25-2010 [facility] UNSPECIFIED CLINIC PSC WITH EXACERBATIO N 99125 CHEST PAIN 09-25-2010 [facility] UNSPECIFIED CLINIC PSC 9953 ALLERGY 09-25-2010 [facility] UNSPECIFIED CLINIC PSC NOT ELSEWHERE CLASSIFIED 490 BRONCHITIS 06-13-2010 [facility] NOT CLINIC PSC SPECIFIED ACUTE OR CHRONIC 75337 PAIN IN 01-23-2010 [facility] REGION AND PSC THIGH 24881 DEGEN 01-23-2010 [facility] LUMBAR/LUMB [facility]IOLOGY [facility] INTERVERTEB PSC RAL DISC 82130 SHORTNESS 11-18-2009 [facility] OF BREATH [facility] PSC V7109 OBSERVATION 05-20-2009 [facility] OF OTHER RODERICK SANFORD M.D.P.S.C. MENTAL CONDITION 48893 UNSPECIFIED 04-04-2009 ARACELIS, SUBJECTIVE GILMA Varner VISUAL DISTURBANCE 9181 SUPERFICIAL 04-04-2009 ARACELIS INJURY OF GILMA Varner CORNEA 98097 PAIN IN OR 04-02-2009 ARACELIS, AROUND EYE [...] 12-20-2008 [facility] OF LYMPH CLINIC PSC NODES 26628 OSTEOARTHRO 08-20-2008 FABIAN Cabello UNSPEC [place], WHETHER M.Atif.P.S.C. GEN/LOC SHLDR REGION 7210 CERVICAL 08-20-2008 FABIAN SPONDYLOSIS CL[facility], WITHOUT M.Atif.P.S.[facility]. MYELOPATHY 7212 THORACIC 08-20-2008 FABIAN SPONDYLOSIS CLAR[facility]EL, WITHOUT M.Atif.P.S.C. MYELOPATHY 6929 CONTACT 04-23-2008 [facility] DERMATITIS& CLINIC [facility] OTHER ECZEMA DUE UNSPEC CAUSE V090 INFECTION 03-31-2008 [facility] W[facility] NISMS RESISTANT PENICILLINS V4589 OTHER 03-23-2008 [facility] STATUS OTHER 7244 THORACIC/WILTON 02-23-2008 FABIAN GONZALEZOSACRAL CL[facility], NEURITIS/RA [facility]ks[facility]rP.S.C. DICULITIS UNSPEC 5199 UNSPECIFIED 02-04-2008 [facility] DISEASE OF [facility] RESPIRATORY [facility] 7823 EDEMA 02-04-2008 [facility] PSC 68235 OTHER 02-04-2008 [facility] RESPIRATORY ABNORMALITI ES 3670 HYPERMETROP 11-13-2007 [facility] W 9219 UNSPECIFIED 11-09-2007 [facility] EYE 02258 OSTEOARTHRO 10-30-2007 [facility] WHETHER GEN/LOC UNSPEC SITE 83897 UNSPECIFIED 10-30-2007 [facility] ARTHROPATHY SITE UNSPECIFIED 68999 OTHER&UNSPE 10-30-2007 [facility] DISC HOSPITAL DISORDER UNSPEC REGION V571 OTHER 10-30-2007 [facility] THERAPY Medications Na ND Rx [...] 17 17 90 FA 30 0 13 ID [address] CA UG PS UL E LO 45 07 08 30 30 00 SO Ac RA 80 -2 -1 .0 00 PE ti TA 20 6- 8- 00 00 RS ve DI 65 20 20 56 NE 08 17 17 90 FA 7 14 ID [address] ETHAN TA BL ET ME 59 07 08 21 6 00 SO Ac TH 74 -2 -1 .0 00 PE ti YL 60 6- 8- 00 00 RS ve MO 00 20 20 56 ED 10 17 17 90 FA NI 3 15 ID SO LY LO NE DR 4 UG MG DO SE PK PH 51 06 07 90 30 00 SO Ac EN 67 -1 -0 .0 00 PE ti YT 24 3- 7- 00 00 RS ve OI 11 20 20 56 N 10 17 17 59 FA SO 3 13 ID D LY EX T DR 10 UG 0 MG CA P FE 68 05 06 30 30 00 SO Ac NO 18 -0 -0 .0 00 PE ti FI 00 9- 2- 00 00 RS ve BR 36 20 20 56 AT 20 17 17 32 FA E 9 89 ID [address] ETHAN TA BL ET PA 65 05 06 30 30 00 SO Ac NT 86 -0 -0 .0 00 PE ti OP 20 9- 2- 00 00 RS ve RA 56 20 20 56 ZO 09 17 17 32 FA LE 0 90 ID LY SO D DR UG 40 MG TA B PH 51 05 06 90 30 00 SO Ac EN 67 -0 -0 .0 00 PE ti YT 24 9- 2- 00 00 RS ve OI 11 20 20 56 N 10 17 17 32 FA SO 3 91 ID D LY EX T DR 10 UG 0 MG CA P AV 00 07 07 0 [address] Ac EL 08 -1 -1 .0 PE 83 ON ti OX 51 1- 1- 00 RS 11 E ve 73 20 20 DI 40 30 11 11 FA XI 0 1 ID E MG LY D TA DR BL UG ET MO 00 07 07 0 [address] Ac ED 59 -1 -1 .0 PE 83 ON ti NI 15 1- 1- 00 RS 13 E ve SO 44 20 20 DI NE 20 11 11 FA XI 5 ID E [address] ETHAN [...] MP SK AN US Y IN C MO 00 02 02 30 12 HO 10 [...] D CO MP AN Y IN C MO 00 01 01 40 16 HO 10 [...] D CO MP AN Y IN C MO 00 11 11 15 5 HO 10 [...] [address] Ac MO 57 -1 -1 .0 PK 12 ON [...] 0 UG NE T CO IN C MO 61 09 09 00 5. 24 WA [...] 5 UG NE T CO IN C MO 00 05 06 00 13 32 HO [...] 20 08 09 FA JA SO 3 ID NE D LY T EX T DR 10 UG 0 MG CA P CY 59 11 12 00 90 30 SO 29 FL Ac CL 74 -1 -0 .0 PE 87 IN ti OB 60 8- 4- 00 RS 38 CH ve EN 17 20 20 UM ZA 71 08 08 FA MO 0 ID EL IN LY LE E N 10 DR J UG MG TA BL ET BA 00 08 11 01 60 30 SO 29 TA Ac CL 83 -2 -0 .0 PE 18 MA ti OF 21 7- 7- 00 RS 01 RE ve EN 02 20 20 N 45 08 08 FA JA 10 0 ID NE LY T MG DR TA UG BL ET RO 00 09 09 00 30 30 SO 29 No Ac PI 37 -1 -2 .0 PE 37 t ti NI 85 9- 6- 00 RS 88 Av ve RO 55 20 20 ai LE 00 08 08 FA la 1 ID bl HC LY e L 0. DR 5 UG MG TA BL ET PH 62 08 09 01 27 30 SO 29 No Ac EN 75 -2 -2 0. PE 12 t ti YT 60 0- 6- 00 RS 63 Av ve OI 40 20 20 0 ai N 20 08 08 FA la SO 3 ID bl D LY e EX T DR 10 UG 0 MG CA P MO 00 08 09 00 6. 15 SO 29 No Ac OV 08 -2 -1 70 PE 18 t ti EN 51 7- 1- 0 RS 02 Av ve TI 13 20 20 ai L 20 08 08 FA la HF 1 ID bl A LY e 90 DR MC UG G IN BOLDEN LE R BA 00 08 09 00 60 30 SO 29 No Ac CL 83 -2 -1 .0 PE 18 t ti OF 21 7- 1- 00 RS 01 Av ve EN 02 20 20 ai 45 08 08 FA la 10 0 ID bl LY e MG DR TA UG BL ET CY 59 08 08 00 90 30 SO 29 No Ac CL 74 -2 -2 .0 PE 12 t ti OB 60 1- 8- 00 RS 92 Av ve EN 17 20 20 ai ZA 71 08 08 FA la MO 0 ID bl IN LY e E 10 DR UG MG TA BL ET GARCIA 00 08 08 00 20 10 SO 29 No Ac LF 60 -2 -2 .0 PE 12 t ti AM 35 0- 8- 00 RS 08 Av ve ET 78 20 20 ai HO 12 08 08 FA la XA 8 ID bl ZO LY e LE -T DR GAO UG DS TA BL ET PH 62 08 08 00 27 30 SO 29 No Ac EN 75 -2 -2 0. PE 12 t ti YT 60 0- 8- 00 RS 63 Av ve OI 40 20 20 0 ai N 20 08 08 FA la SO 3 ID bl D LY e EX T DR 10 UG 0 MG CA P TR 65 08 08 00 30 7 SO 29 No Ac AM 16 -2 -2 .0 PE 12 t ti AD 20 0- 8- 00 RS 09 Av ve OL 62 20 20 ai 71 08 08 FA la HC 1 ID bl L LY e 50 DR MG UG TA BL ET 62 07 07 00 30 30 SO 28 No Ac 79 -0 -1 .0 PE 77 t ti 40 3- 7- 00 RS 91 Av ve 75 20 20 ai 00 08 08 FA la 1 ID bl LY e DR UG 63 05 07 01 60 30 SO 28 No Ac 85 -2 -0 .0 PE 49 t ti 70 3- 3- 00 RS 63 Av ve 11 20 20 ai 13 08 08 FA la 3 ID bl LY e UG CY 59 03 07 01 90 30 SO 27 No Ac CL 74 -2 -0 .0 PE 96 t ti OB 60 2- 3- 00 RS 77 Av ve EN 17 20 20 ai ZA 71 08 08 FA la MO 0 ID bl IN LY e E 10 UG MG TA BL ET 63 05 06 00 60 30 SO 28 No Ac 85 -2 -0 .0 PE 49 t ti 70 3- 5- 00 RS 63 Av ve 11 20 20 ai 13 08 08 FA la 3 ID bl LY e UG TO 61 04 [...] ai 13 08 08 FA la 3 ID bl LY e UG CY 59 03 04 00 90 30 SO 27 No Ac CL 74 -2 -1 .0 PE 96 t ti OB 60 2- 0- 00 RS 77 Av ve EN 17 20 20 ai ZA 71 08 08 FA la MO 0 ID bl IN LY e E 10 DR UG MG TA BL ET PH 62 05 04 05 90 30 SO 25 No Ac EN 75 -2 -0 .0 PE 23 t ti YT 60 3- 7- 00 RS 85 Av ve OI 40 20 20 ai N 20 07 08 FA la SO 3 ID bl D LY e EX T DR [...] SQUARE METERS Comment: If this patient is -Lao, then multiply the Comment: result by 1.210. [...] blood 08:15 platele t mean volume claudia Beltrami % = 7.1 % 1.7-9.3 complet 017 [...] End Date Code Location Performer Type Date [facility] R[facility] - 7 7 [facility] - 7 7 [facility] [place] [address] [facility] [place] [address] [facility] [address] RAJAN - 1 1 [facility] RAJAN - 0 0 [facility] RAJAN - 8 8 [facility] RAJAN - 8 8 [facility] RAJAN - 8 8 [facility] RAJAN - 8 8 [facility] RAJAN - 8 8 [facility] RAJAN - 8 8 [facility] RAJAN - 8 8 [facility] - 8 8 [facility]
--- OUTSIDE RECORDS SUMMARY | 2017-06-10 11:44 | External Medical Summary Rpt | CCD ---
Author Author , RAYSA CHAVEZPAUL Address Unknown Phone [email or web address] Care Team Providers Care Fireproof Door Maker Name Role Phone FABIAN SANFORD, Unavailable Unavailable [email or web address], FABIAN SANFORD M.D.PVernaSVernaCVerna SANFORD, Unavailable Unavailable MD,PSC, FABIAN SANFORD MD,PSC AILIN PERALTA, Unavailable Unavailable AILIN PERALTA [facility] Unavailable Unavailable [facility], [facility], Unavailable Unavailable [facility], Unavailable Unavailable [facility] Unavailable Unavailable [facility] Unavailable Unavailable [facility], Unavailable Unavailable [facility] Unavailable Unavailable EQU[facility]MENT, [facility] FINCHUM ELL, FINCHUM Unavailable Unavailable [facility] Unavailable Unavailable INC, [facility] RA PEDRAZA, Unavailable Unavailable RA PEDRAZA [facility], Unavailable Unavailable [facility] Unavailable Unavailable INC, [facility] JOSE CONTRERAS, JOSE Unavailable Unavailable [facility] Unavailable Unavailable GROUP PS, [facility] Unavailable Unavailable [facility], [facility] Unavailable Unavailable [facility]INGS, [facility] LORA KENNEDY, Unavailable Unavailable LORA KENNEDY VICTOR G, Unavailable Unavailable TAJ PRO JOSE T, Unavailable Unavailable RIDDHI SAAB MARSHALL Unavailable Unavailable [facility], Unavailable Unavailable [facility] Unavailable Unavailable [facility], Unavailable Unavailable [facility] Unavailable Unavailable AMBULANCE SE, [facility] SOKAN BAB, SOKAN BAB Unavailable Unavailable [facility], Unavailable Unavailable [facility] TAMAREN PEGGY, TAMAREN Unavailable Unavailable PEGGY LORENAN, PAULINO, Unavailable Unavailable TAMAREN, PAULINO [facility] Unavailable Unavailable #[id number], [facility] PH [phone], Unavailable Unavailable [facility] 049 Purpose Continuity of Care Document - 10-30-2007 through 2016 Problems Code Diagnosis DOS Provider Status [id number] PAIN IN 05-06-2017 FABIAN RIGHT POLLO SANFORD MD,PSC M5030 OT 05-06-2017 FABIAN CERVICAL MICKEY SANFORD MD,PSC DEGENERATIO N UNS CERV REGION M5136 OTH 05-06-2017 FABIAN INTERVERTEB HI SANFORD MD,[facility] DEGEN LUMBAR REGION [id number] HALF-WAY 05-06-2017 FABIAN CURRENT USE LINDA SANFORD OPIATE ,[facility] ANALGESIC J0140 ACUTE 03-04-2017 [facility] PANSINUS[facility]I [facility] S UNSPECIFIED J060 ACUTE 03-04-2017 [facility] LARYNGOPHAR [facility]INIC YNGITIS E781 PURE 02-11-2017 [facility] IDE[facility] K219 GASTRO-ESOP 02-11-2017 [facility] DISEASE INC WITHOUT ESOPHAGITIS [id number] OTHER LONG 02-11-2017 [facility] CURRENT INC DRUG THERAPY [id number] OTHER 11-06-2016 FABIAN CERVICAL MICKEY SANFORD MD,[facility] MID-CERV REG UNS LEVEL Z0100 ENCOUNTER 08-09-2016 [...] [facility] Z1321 ENCOUNTER 02-20-2016 [facility] FOR [facility] SCREENING HOLDINGS FOR NUTRITIONAL DISORDER K210 GASTRO-ESOP 12-07-2015 [facility] DISEASE W/ ESOPHAGITIS K648 OTHER 12-07-2015 [facility] M6250 MUSCLE 11-16-2015 FABIAN WASTING & KAROL SANFORD MD,PSC UNSPECIFIED SITE K921 MELENA 10-26-2015 [facility] K5900 CONSTIPATIO 10-05-2015 JOSE CONTRERAS N UNSPECIFIED R12 HEARTBURN 10-05-2015 JOSE CONTRERAS Z800 FAMILY HX 10-05-2015 JO[facility] CONTRERAS MALIGNANT NEOPLASM DIGESTIVE ORGANS [id number] PAIN IN 08-08-2015 [place] WAR RIGHT ARM R200 ANESTHESIA 08-08-2015[facility]LEY WAR OF SKIN 28049 UNSPEC 02-01-2015 LAB [facility] EPILEPSY [facility] WITHOUT HOLDINGS MENTION INTRACT EPILEPSY 34427 PAIN IN 02-01-2015 LAB [facility] JOINT, [facility] SHOULDER HOLDINGS REGION 7224 DEGENERATIO 07-22-2014 FABIAN N OF SOCO SANFORD MD,PSC INTERVERTEB RAL DISC V5869 LONG-TERM 07-22-2014 FABIAN (CURRENT) BIA SANFORD OF ,PSC OTHER MEDICATIONS 00142 EFFUSION OF 07-20-2014 SO[facility] BAB LOWER LEG JOINT V140 PERSONAL 07-20-2014 [facility] PENICILLIN V146 PERSONAL 07-20-2014 [facility] ANALGESIC AGENT V1582 PERS HX 07-20-2014 [facility] 1109 DERMATOPHYT 07-19-2014 [facility] OSIS OF CLINIC UNSPECIFIED SITE 7273 OTHER 07-19-2014 [facility] BURSITIS CLINIC DISORDERS 7821 RASH AND 07-19-2014 [facility] OTHER CLINIC NONSPECIFIC SKIN ERUPTION 99995 OTHER 06-30-2014 [facility] V0481 NEED 05-27-2014 [facility] PROPHYLACTI CLINIC C VACCINATION &INOCULATIO N FLU 69916 ACUTE 05-24-2014 [facility] LARYNGITIS, CLINIC WITHOUT MENTION OF OBSTRUCTIO 85135 OBSTRUCTIVE 05-24-2014 [facility] CHRONIC CLINIC BRONCHITIS WITH EXACERBATIO N 26399 CRAMP OF 05-24-2014 LAB [facility] LIMB [facility]INGS 9598 INJURY 02-21-2014 [facility] OTH&UNSPEC [facility] SPE[facility]BUL[facility] SITES INCL SE MULTIPLE 50472 OTHER 10-05-2011 [facility] CHRONIC PAIN 7213 LUMBOSACRAL 10-05-2011 [facility] SPONDYLOSIS WITHOUT MYELOPATHY 9592 INJURY 10-05-2011 [facility] OTHER&UNSPE CIFIED SHOULDER&UP PER ARM 44634 GEN CONVUL 07-12-2011 TAMAREN PEGGY EPILEPSY W/O MENTION INTRACT EPILEPSY 496 CHRONIC 07-12-2011 TAMAREN PEGGY AIRWAY OBSTRUCTION NEC 17044 SPASM OF 07-12-2011 TAMSTEVENN PEGGY MUSCLE 7862 COUGH 07-12-2011 TAMAREN AUG 7230 CERVICALGIA 06-06-2011 [facility] 7242 LUMBAGO 04-06-2011 LAB [facility] 6827 CELLULITIS 01-11-2011 [facility] AND ABSCESS [facility]INIC PSC OF FOOT EXCEPT TOES 06529 OBSTRUCTIVE 11-23-2010 91 [address] [employer] SLEEP MEDICAL APNEA EQUIPMENT 95655 PAIN IN 11-10-2010 [facility] JOINT, CLINIC PSC LOWER LEG 7295 PAIN IN 11-10-2010 [facility] TISSUES OF LIMB 9599 INJURY 11-10-2010 [facility] OTHER AND RADIOLOGY UNSPECIFIED ASSOCIAT UNSPECIFIED SITE V643 PROCEDURE 11-10-2010 [facility] OUT FOR OTHER REASONS 76907 ASTHMA 09-25-2010 [facility] UNSPECIFIED CLINIC PSC WITH EXACERBATIO N 30503 CHEST PAIN 09-25-2010 [facility] UNSPECIFIED CLINIC PSC 9953 ALLERGY 09-25-2010 [facility] UNSPECIFIED CLINIC PSC NOT ELSEWHERE CLASSIFIED 490 BRONCHITIS 06-13-2010 [facility] NOT CLINIC PSC SPECIFIED ACUTE OR CHRONIC 07790 PAIN IN 01-23-2010 [facility] REGION AND PSC THIGH 01981 DEGEN 01-23-2010 [facility] LUMBAR/LUMB RADIOLOGY OSACRAL [facility]OC[facility]ATES INTERVERTEB PSC RAL DISC 48193 SHORTNESS 11-18-2009 [facility] OF BREATH [facility] PSC V7109 OBSERVATION 05-20-2009 FABIAN OF RODERICK HOFFMAN M.[facility]. MENTAL CONDITION 48675 UNSPECIFIED 04-04-2009 ARACELIS SUBJECTIVE GILMA W VISUAL DISTURBANCE 9181 SUPERFICIAL 04-04-2009 ARACELIS INJURY OF GILMA Varner CORNEA 69612 PAIN IN OR 04-02-2009 ARACEL[facility] AROUND EYE GILMA W 9300 FOREIGN 03-30-2009 ARACELIS BODY IN GILMA W [place] 9309 FOREIGN 02-08-2009 [facility] BODY IN CLINIC PSC UNSPECIFIED SITE ON EXTERNAL EYE 2893 LYMPHADENIT 01-04-2009 [facility] IS TAJ Noe UNSPECIFIED EXCEPT MESENTERIC 4760 CHRONIC 01-04-2009 [facility] LARYNGITIS TAJ Noe 7249 OTHER 12-20-2008 [facility] UNSPECIFIED CLINIC PSC BACK DISORDER 7856 ENLARGEMENT 12-20-2008 [facility] OF LYMPH CLINIC PSC NODES 85388 OSTEOARTHRO 08-20-2008 FABIAN SANFORD, WHETHER M.Atif.P.S.C. GEN/LOC SHLDR REGION 7210 CERVICAL 08-20-2008 FABIAN SPONDYLOSIS CLARIBEL, WITHOUT M.Atif.P.S.[facility]. MYELOPATHY 7212 THORACIC 08-20-2008 FABIAN SPONDYLOSIS CLARIBEL, WITHOUT Joe.Atif.P.S.C. MYELOPATHY 6929 CONTACT 04-23-2008 [place] DERMATITIS& CLINIC [facility] OTHER ECZEMA DUE UNSPEC CAUSE V090 INFECTION 03-31-2008 [place] W/MICROORGA CLINIC [facility] NISMS RESISTANT PENICILLINS V4589 OTHER 03-23-2008 [facility] POSTSURGICA HOSPITAL L STATUS OTHER 7244 THORACIC/WILTON 02-23-2008 FABIAN SCHOFIELDCRROBINSON SANFORD, NEURITIS/RA AleksandrP.S.C. DICULITIS UNSPEC 5199 UNSPECIFIED 02-04-2008 [facility] DISEASE OF [facility]OLOG[facility]OC[facility]ATES RESPIRATORY PSC SYSTEM 7823 EDEMA 02-04-2008 [facility] 04625 OTHER 02-04-2008 [facility] DYSPNEA AND HOSPITAL RESPIRATORY ABNORMALITI ES 3670 HYPERMETROP 11-13-2007 [facility] W 9219 UNSPECIFIED 11-09-2007 [facility] CONTUSION HOSPITAL OF EYE 15273 OSTEOARTHRO 10-30-2007 [facility] UNSPEC HOSPITAL WHETHER GEN/LOC UNSPEC SITE 14738 UNSPECIFIED 10-30-2007 [facility] ARTH[facility] SITE UNSPECIFIED 48804 OTHER&UNSPE 10-30-2007 [facility] DISC HOSPITAL DISORDER UNSPEC REGION V571 OTHER 10-30-2007 [facility] PHYSICAL HOSPITAL THERAPY Medications Na ND Rx Da Fi Fi Am Da Di Ph RX Ph St me C No te ll ll ou ys ag ar # ys at s nt no ma ic us Or Da si cy ia de te s n re d CE 65 07 08 20 10 00 SO Ac FD 86 -2 -1 .0 00 PE ti IN 20 6- 8- 00 00 RS ve IR 17 20 20 56 76 17 17 90 FA 30 0 13 WI [address] CA UG PS UL E LO 45 07 08 30 30 00 SO Ac RA 80 -2 -1 .0 00 PE ti TA 20 6- 8- 00 00 RS ve DI 65 20 20 56 NE 08 17 17 90 FA 7 14 WI [address] UG TA BL ET ME 59 07 08 21 6 00 SO Ac TH 74 -2 -1 .0 00 PE ti YL 60 6- 8- [address] 00 20 20 56 ED 10 17 17 90 FA NI 3 15 WI SO LY LO NE DR 4 UG MG DO SE PK PH 51 06 07 90 30 00 SO Ac EN 67 -1 -0 .0 00 PE ti YT 24 3- 7- 00 00 RS ve OI 11 20 20 56 N 10 17 17 59 FA SO 3 13 WI D LY EX T DR 10 UG 0 MG CA P FE 68 05 06 30 30 00 SO Ac NO 18 -0 -0 .0 00 PE ti FI 00 9- 2- 00 00 RS ve BR 36 20 20 56 AT 20 17 17 32 FA E 9 89 WI [address] LONG TA BL ET PA 65 05 06 30 30 00 SO Ac NT 86 -0 -0 .0 00 PE ti OP 20 9- 2- 00 00 RS ve RA 56 20 20 56 ZO 09 17 17 32 FA LE 0 90 WI LY SO D DR DR LONG 40 MG TA B PH 51 05 06 90 30 00 SO Ac EN 67 -0 -0 .0 00 PE ti YT 24 9- 2- 00 00 RS ve OI 11 20 20 56 N 10 17 17 32 FA SO 3 91 WI D LY EX T DR 10 UG 0 MG CA P AV 00 07 07 0 [address] Ac EL 08 -1 -1 .0 PE 83 ON ti OX 51 1- 1- 00 RS 11 E ve 73 20 20 DI 40 30 11 11 FA XI 0 1 WI E MG LY D TA DR BL UG ET CT 00 07 07 0 [address] Ac ED 59 -1 -1 .0 PE 83 ON ti NI 15 1- 1- 00 RS 13 E ve SO 44 20 20 DI NE 20 11 11 FA XI 5 WI E [address] LONG TA BL ET 49 06 06 50 [...] S 6 DI HO [address] DENISE XA 5 UG E ZO D LE [...] MP SK AN US Y IN C CT 00 02 02 30 12 HO 10 [...] D CO MP AN Y IN C CT 00 01 01 40 16 HO 10 [...] PK 14 ON ti OX 51 3- 00 IN 02 E ve 73 20 20 S 8 DI [address] DENISE 0 1 UG E MG D CO TA MP BL AN ET Y IN C SP 00 01 01 2 [address] Ac IR 59 -0 -0 .0 PK 14 ON ti IV 70 3- 00 IN 02 E ve A 07 20 20 S 9 DI [address] DEINSE 1 UG E MC D G CO CP MP -H AN AN Y DI IN BOLDEN C LE R 00 01 01 [address] Ac 06 -0 -0 .0 PK 14 ON ti 90 IN 03 E ve 47 20 20 S 0 DI [address] DENISE 7 UG E D CO MP AN Y IN C 59 11 12 2 [address] Ac 31 -0 -0 .0 PK 12 ON ti 00 IN 37 E ve 57 20 20 S 1 DI [address] DENISE 0 UG E D CO MP AN Y IN C 00 11 11 [address] Ac 37 -2 -2 .0 PK 13 ON ti 88 9 IN 07 E ve 50 20 20 S 0 DI [address] DENISE 1 UG E D CO MP AN Y IN C BE 68 11 11 [address] Ac NZ 38 -2 -2 .0 PK 13 ON ti ON 20 IN 07 E ve AT 24 20 20 S 1 DI AT [address] DENISE E 1 UG E 20 D 0 CO MG MP AN CA Y PS IN UL C E CT 00 11 11 [address] Ac ED 60 -2 -2 .0 PK 13 ON ti NI 35 9- 9 IN 07 E ve SO 33 20 20 S 2 DI NE [address] DENISE 2 UG E 10 D CO MG MP AN TA Y BL IN ET C CI 16 11 11 [address] 57 -1 -1 .0 PK 12 ON ti OF 10 2- 2- 00 IN 52 E ve LO 41 20 20 S 5 DI XA [address] DENISE CI 0 UG E N D HC CO L MP 50 AN 0 Y MG IN C TA B 00 11 11 [address] Ac 14 -0 -0 .0 PK 12 ON ti 31 9- 9- 00 IN 36 E ve 47 20 20 S 9 DI [address] XI 0 UG E D CO MP AN Y IN C 59 11 11 2 [address] Ac 31 -0 -0 .0 PK 12 ON ti 00 9- 9- 00 IN 37 E ve 57 20 20 S 1 DI [address] XI 0 UG E D CO MP AN Y IN C AV 00 11 11 3. [address] Ac EL 08 -0 -0 00 PK 12 ON ti OX 51 9- 9- 0 IN 37 E ve 73 20 20 S 0 DI [address] XI 0 1 UG E MG D CO TA MP BL AN ET Y IN C 59 04 08 2 [...] 5 N [address] JA 0 1 UG NE MG T CO [...] 5 UG NE T CO IN C 59 10 11 00 17 30 HO 10 TA Ac 31 -1 -0 .0 PK 00 MA ti 00 9- 5- 00 IN 49 RE ve 57 20 20 S 3 N [address] LYNN 0 UG NE T CO IN C 00 [...] 0 IN MG C TA BL ET CT 61 09 09 00 5. 24 WA 70 MA Ac ED 31 -0 -1 00 L- 02 RS ti NI 40 2- 0- 0 MA 51 BOLDEN ve SO 63 20 20 RT 4 LL LO 70 09 09 NE 5 PH GR AR EG AC MA OR CY Y 1% W #[address] OP 00 09 09 00 5. 25 WA 70 MA Ac 99 -0 -1 00 L- 02 RS ti 80 2- 0- 0 MA 51 BOLDEN ve 31 20 20 RT 3 LL 50 09 09 5 PH GR AR EG MA OR CY Y W #4 93 TO 61 08 09 00 5. 24 WA 70 No Ac BR 31 -2 -1 00 L- 01 t ti AM 40 6- 0- 0 MA 61 Av ve YC 64 20 20 RT 0 ai IN 30 09 09 la 5 PH bl 0. AR e 3% MA CY EY E #4 DR 93 OP S 68 06 06 00 25 7 HO 99 TA Ac 46 -0 -1 .0 PK 63 MA ti 20 9- 8- 00 IN 40 RE ve 14 20 20 S N [address] LYNN 5 UG NE T CO IN C CT 00 05 06 00 [address] Ac OV 08 -1 -0 .4 PK 57 ON ti EN 51 8- 4- 00 IN 56 E ve TI 13 20 20 S DI L [address] DENISE HF 1 UG E A D 90 CO MC IN G C IN BOLDEN LE R 00 05 06 00 [address] Ac 14 -1 -0 .0 PK 57 ON ti 31 8- 4- 00 IN 58 E ve 47 20 20 S DI [address] DENISE 1 UG E D CO IN C FL 00 05 06 00 10 30 [...] UG E D CO IN C 00 04 04 00 30 12 HO [...] 4 MG IN C TA BL ET 59 01 03 02 17 32 HO [...] 0 C MG CA P 59 01 02 01 [address] Ac 31 -1 -2 .0 PK 18 ON ti 00 3- 6- 00 IN 69 E ve 57 20 20 S DI [address] DENISE 0 UG E D CO IN C RO 00 01 02 01 30 30 [...] MG IN C TA BL ET PH 62 08 01 02 27 30 SO 29 TA Ac EN 75 -2 -0 0. PE 12 MA ti YT 60 0- 1- 00 RS 63 RE ve OI 40 20 20 0 N N 20 08 09 FA JA SO 3 WI NE D LY T EX T DR 10 UG 0 MG CA P CY 59 11 12 00 90 30 SO 29 FL Ac CL 74 -1 -0 .0 PE 87 IN ti OB 60 8- 4- 00 RS 38 CH ve EN 17 20 20 UM ZA [address] 0 WI EL IN LY LE E N 10 DR J UG MG TA BL ET BA 00 08 11 01 60 30 SO 29 TA Ac CL 83 -2 -0 .0 PE 18 MA ti OF 21 7- 7- 00 RS 01 RE ve EN 02 20 20 N 45 08 08 FA JA 10 0 WI NE LY T MG TA UG BL ET PH 62 08 09 01 27 30 SO 29 No Ac EN 75 -2 -2 0. PE 12 t ti YT 60 0- 6- 00 RS 63 Av ve OI 40 20 20 0 ai N 20 08 08 FA la SO 3 WI bl D LY e EX T DR 10 UG 0 MG CA P RO 00 09 09 00 30 30 SO 29 No Ac PI 37 -1 -2 .0 PE 37 t ti NI 85 9- 6- 00 RS 88 Av ve RO 55 20 20 ai LE 00 08 08 FA la 1 WI bl HC LY e L 0. 5 UG MG TA BL ET CT 00 08 09 00 6. 15 SO 29 No Ac OV 08 -2 -1 70 PE 18 t ti EN 51 7- 1- 0 RS 02 Av ve TI 13 20 20 ai L 20 08 08 FA la HF 1 WI bl A LY e 90 DR TOLEDO UG G IN BOLDEN LE R BA 00 08 09 00 60 30 SO 29 No Ac CL 83 -2 -1 .0 PE 18 t ti OF 21 7- 1- 00 RS 01 Av ve EN 02 20 20 ai 45 08 08 FA la 10 0 WI bl LY e MG DR TA UG BL ET GARCIA 00 08 08 00 20 10 SO 29 No Ac LF 60 -2 -2 .0 PE 12 t ti AM 35 0- 8- 00 RS 08 Av ve ET 78 20 20 ai HO 12 08 08 FA la XA 8 WI bl ZO LY e LE -T MP UG DS TA BL ET PH 62 08 08 00 27 30 SO 29 No Ac EN 75 -2 -2 0. PE 12 t ti YT 60 0- 8- 00 RS 63 Av ve OI 40 20 20 0 ai N 20 08 08 FA la SO 3 WI bl D LY e EX T DR 10 UG 0 MG CA P TR 65 08 08 00 30 7 SO 29 No Ac AM 16 -2 -2 .0 PE 12 t ti AD 20 0- 8- 00 RS 09 Av ve OL 62 20 20 ai 71 08 08 FA la HC 1 WI bl L LY e 50 DR MG UG TA BL ET CY 59 08 08 00 90 30 SO 29 No Ac CL 74 -2 -2 .0 PE 12 t ti OB 60 1- 8- 00 RS 92 Av ve EN 17 20 20 ai ZA 71 [address] 0 WI bl IN LY e E 10 DR UG MG TA BL ET 62 07 07 00 30 30 SO 28 No Ac 79 -0 -1 .0 PE 77 t ti 40 3- 7- 00 RS 91 Av ve 75 20 20 ai 00 08 08 FA la 1 WI bl LY e DR UG 63 05 07 01 60 30 SO 28 No Ac 85 -2 -0 .0 PE 49 t ti 70 3- 3- 00 RS 63 Av ve 11 20 20 ai 13 08 08 FA la 3 WI bl LY e DR UG CY 59 03 07 01 90 30 SO 27 No Ac CL 74 -2 -0 .0 PE 96 t ti OB 60 2- 3- 00 RS 77 Av ve EN 17 20 20 ai ZA [address] 0 WI bl IN LY e E 10 DR UG MG TA BL ET 63 05 06 00 60 30 SO 28 No Ac 85 -2 -0 .0 PE 49 t ti 70 3- 5- 00 RS 63 Av ve 11 20 20 ai 13 08 08 FA la 3 WI bl LY e DR UG TO 61 04 04 00 5. [...] ai 13 08 08 FA la 3 WI bl LY e DR UG CY 59 03 04 00 90 30 SO 27 No Ac CL 74 -2 -1 .0 PE 96 t ti OB 60 2- 0- 00 RS 77 Av ve EN 17 20 20 ai ZA [address] 0 WI bl IN LY e E 10 DR UG MG TA BL ET PH 62 05 04 05 90 30 SO 25 No Ac EN 75 -2 -0 .0 PE 23 t ti YT 60 3- 7- 00 RS 85 Av ve OI 40 20 20 ai N 20 07 08 FA la SO 3 WI bl D LY e EX T DR 10 UG 0 MG CA P Encounters Encounter Start End Date Code Location Performer Type Date [facility] - 7 7 [facility] - 7 7 [facility] [address] [facility] - 1 1 [facility] - 0 0 [facility] - 8 8 [facility] - 8 8 [facility] - 8 8 [facility] - 8 8 [facility] - 8 8 [facility] - 8 8 [facility] - 8 8 [facility] - 8 8 [facility]
--- OUTSIDE RECORDS SUMMARY | 2017-06-10 11:44 | External Medical Summary Rpt | CCD ---
Author Author , RAYSA CHAVEZPAUL Address Unknown Phone [email or web address] Care Team Providers Care Construction Analyst Name Role Phone FABIAN SANFORD, Unavailable Unavailable [email or web address], FABIAN SANFORD M.D.PVernaSVernaCVerna SANFORD, Unavailable Unavailable MD,PSC, FABIAN SANFORD MD,PSC AILIN PERALTA, Unavailable Unavailable AILIN PERALTA [facility] Unavailable Unavailable [facility], [facility], Unavailable Unavailable [facility], Unavailable Unavailable [facility] Unavailable Unavailable [facility] Unavailable Unavailable [facility], Unavailable [...] INC JOSE CONTRERAS, JOSE Unavailable Unavailable [facility] Unavailable Unavailable GROUP PS, [facility] Unavailable Unavailable [facility], [facility] Unavailable Unavailable [facility]INGS, [facility] LORA KENENDY, Unavailable Unavailable LORA KENNEDY VICTOR G, Unavailable Unavailable TAJ PRO JOSE T, Unavailable Unavailable RIDDHI SAAB MARSHALL Unavailable Unavailable [facility], Unavailable Unavailable [facility] Unavailable Unavailable [facility], Unavailable Unavailable [facility] Unavailable [facility]available AMBULANCE SE, [facility] SOKAN BAB, [facility] BAB Unavailable Unavailable [facility], Unavailable Unavailable [facility] TAMAREN PEGGY, TAMAREN Unavailable Unavailable PEGGY LORENAN, PAULINO, Unavailable Unavailable TAMAREN, PAULINO [facility] Unavailable Unavailable #[phone], [phone], Unavailable Unavailable [phone] Purpose Continuity of Care Document - 10-30-2007 through 2016 Problems Code Diagnosis DOS Provider Status [id number] PAIN IN 05-06-2017 FABIAN RIGHT POLLO SANFORD MD,PSC [id number] OT 05-06-2017 FABIAN CERVICAL MICKEY SANFORD MD,PSC DEGENERATIO N UNS CERV REGION M5136 OTH 05-06-2017 FABIAN INTERVERTEB HI SANFORD MD,[facility] DEGEN LUMBAR REGION [id number] DETENTION 05-06-2017 FABIAN CURRENT USE LINDA SANFORD OPIATE ,[facility] ANALGESIC J0140 ACUTE 03-04-2017 [facility] PANSINUS[facility]I [facility] S UNSPECIFIED J060 ACUTE 03-04-2017 [facility] LARYNGOPHAR [facility]INIC YNGITIS E781 PURE 02-11-2017 [facility] IDEMIA INC K219 GASTRO-ESOP 02-11-2017 [facility] DISEASE INC WITHOUT ESOPHAGITIS [id number] OTHER LONG 02-11-2017 [facility] CURRENT INC DRUG THERAPY Q21760 OTHER 11-06-2016 FABIAN CERVICAL MICKEY SANFORD MD,[facility] MID-CERV REG UNS LEVEL Z0100 ENCOUNTER 08-09-2016 [...] HOLDINGS FOR NUTRITIONAL DISORDER K210 GASTRO-ESOP 12-07-2015 [facility] DISEASE W/ ESOPHAGITIS K648 OTHER 12-07-2015 [facility] M6250 MUSCLE 11-16-2015 FABIAN WASTING & KAROL SANFORD MD,PSC UNSPECIFIED SITE K921 MELENA 10-26-2015 [facility] K5900 CONSTIPATIO 10-05-2015 JOSE CONTRERAS N UNSPECIFIED R12 HEARTBURN 10-05-2015 JOSE CONTRERAS Z800 FAMILY HX 10-05-2015 [facility] CONTRERAS MALIGNANT NEOPLASM DIGESTIVE ORGANS [id number] PAIN IN 08-08-2015 [facility] WAR RIGHT ARM R200 ANESTHESIA 08-08-2015[facility]LEY WAR OF SKIN 92983 UNSPEC 02-01-2015 LAB [facility] EPILEPSY [facility] WITHOUT HOLDINGS MENTION INTRACT EPILEPSY 95216 PAIN IN 02-01-2015 LAB [facility] JOINT, [place] SHOULDER HOLDINGS REGION 7224 DEGENERATIO 07-22-2014 FABIAN N OF SOCO SANFORD MD,PSC INTERVERTEB RAL DISC V5869 LONG-TERM 07-22-2014 FABIAN (CURRENT) BIA SANFORD OF ,PSC OTHER MEDICATIONS 42256 EFFUSION OF 07-20-2014 [facility] LOWER LEG JOINT V140 PERSONAL 07-20-2014 [facility] PENICILLIN V146 PERSONAL 07-20-2014 [facility] ANALGESIC AGENT V1582 PERS HX 07-20-2014 [facility] 1109 DERMATOPHYT 07-19-2014 [facility] OSIS OF CLINIC UNSPECIFIED SITE 7273 OTHER 07-19-2014 [facility] BURSITIS CLINIC DISORDERS 7821 RASH AND 07-19-2014 [facility] OTHER CLINIC NONSPECIFIC SKIN ERUPTION 66681 OTHER 06-30-2014 [facility] CON[facility] V0481 NEED 05-27-2014 [facility] PROPHYLACTI CLINIC C VACCINATION &INOCULATIO N FLU 87263 ACUTE 05-24-2014 [facility] LARYNGITIS, CLINIC WITHOUT MENTION OF OBSTRUCTIO 18267 OBSTRUCTIVE 05-24-2014 [facility] CHRONIC CLINIC BRONCHITIS WITH EXACERBATIO N 41417 CRAMP OF 05-24-2014 LAB [facility] LIMB [facility] HOLDINGS 9598 INJURY 02-21-2014 [facility] OTH&UNSPEC [facility] OTH SPEC AMBULANCE SITES INCL SE MULTIPLE 09065 OTHER 10-05-2011 [facility] CHRONIC PAIN 7213 LUMBOSACRAL 10-05-2011 [facility] SPONDYLOSIS WITHOUT MYELOPATHY 9592 INJURY 10-05-2011 [facility] OTHER&UNSPE CIFIED SHOULDER&UP PER ARM 08227 GEN CONVUL 07-12-2011 TAMAREN PEGGY EPILEPSY W/O MENTION INTRACT EPILEPSY 496 CHRONIC 07-12-2011 TAMAREN PEGGY AIRWAY OBSTRUCTION NEC 91504 SPASM OF 07-12-2011 TAMSTEVENN PEGGY MUSCLE 7862 COUGH 07-12-2011 TAMAREN AUG 7230 CERVICALGIA 06-06-2011 [facility] 7242 LUMBAGO 04-06-2011 LAB [facility] 6827 CELLULITIS 01-11-2011 [facility] AND ABSCESS CLINIC PSC OF FOOT EXCEPT TOES 61947 OBSTRUCTIVE 11-23-2010 [employer] SLEEP MEDICAL APNEA EQUIPMENT 39734 PAIN IN 11-10-2010 [facility] JOINT, CLINIC PSC LOWER LEG 7295 PAIN IN 11-10-2010 [facility] TISSUES OF LIMB 9599 INJURY 11-10-2010 [facility] OTHER AND RADIOLOGY UNSPECIFIED ASSOCIAT UNSPECIFIED SITE V643 PROCEDURE 11-10-2010 [facility] OUT FOR OTHER REASONS 17018 ASTHMA 09-25-2010 [facility] UNSPECIFIED CLINIC PSC WITH EXACERBATIO N 49231 CHEST PAIN 09-25-2010 [facility] UNSPECIFIED CLINIC PSC 9953 ALLERGY 09-25-2010 [facility] UNSPECIFIED CLINIC PSC NOT ELSEWHERE CLASSIFIED 490 BRONCHITIS 06-13-2010 [facility] NOT CLINIC PSC SPECIFIED ACUTE OR CHRONIC 83873 PAIN IN 01-23-2010 [facility] REGION AND PSC THIGH 13810 DEGEN 01-23-2010 [facility] LUMBAR/LUMB [facility] INTERVERTEB PSC RAL DISC 46634 SHORTNESS 11-18-2009 [facility] OF [facility] PSC V7109 OBSERVATION 05-20-2009 FABIAN OF [facility] MENTAL CONDITION 68811 UNSPECIFIED 04-04-2009 ARACELIS SUBJECTIVE GILMA W VISUAL DISTURBANCE 9181 SUPERFICIAL 04-04-2009 ARACELIS INJURY OF GILMA Varner CORNEA 08774 PAIN IN OR 04-02-2009 ARACELIS AROUND EYE GILMA W 9300 FOREIGN 03-30-2009 ARACEILS BODY IN GILMA W CORNEA 9309 FOREIGN 02-08-2009 [facility] BODY IN CLINIC PSC UNSPECIFIED SITE ON EXTERNAL EYE 2893 LYMPHADENIT 01-04-2009 MORTEZA IS TAJ Noe UNSPECIFIED EXCEPT MESENTERIC 4760 CHRONIC 01-04-2009 M[facility]TE[facility] LARYNGITIS TAJ Noe 7249 OTHER 12-20-2008 [facility] UNSPECIFIED CLINIC PSC BACK DISORDER 7856 ENLARGEMENT 12-20-2008 [facility] OF LYMPH CLINIC PSC NODES 94951 OSTEOARTHRO 08-20-2008 FABIAN SANFORD, WHETHER M.Atif.P.[facility]. GEN/LOC SHLDR REGION 7210 CERVICAL 08-20-2008 FABIAN SPONDYLOSIS CLARIBEL, WITHOUT M.Atif[facility]. MYELOPATHY 7212 THORACIC 08-20-2008 FABIAN SPONDYLOSIS CLARIBEL, WITHOUT Joe.Atif.P.S.C. MYELOPATHY 6929 CONTACT 04-23-2008 [facility] DERMATITIS& CLINIC [facility] OTHER ECZEMA DUE UNSPEC CAUSE V090 INFECTION 03-31-2008 [facility] W/MICROORGA CLINIC [facility] NISMS RESISTANT PENICILLINS V4589 OTHER 03-23-2008 [facility] L STATUS OTHER 7244 THORACIC/WILTON 02-23-2008 FABIAN SCHOFIELDCRROBINSON SANFORD, NEURITIS/RA AleksandrP.S.C. DICULITIS UNSPEC 5199 UNSPECIFIED 02-04-2008 [facility] DISEASE OF [facility] RESPIRATORY PSC SYSTEM 7823 EDEMA 02-04-2008 [facility] 81974 OTHER 02-04-2008 [facility] DYSPNEA AND HOSPITAL RESPIRATORY ABNORMALITI ES 3670 HYPERMETROP 11-13-2007 [facility] W 9219 UNSPECIFIED 11-09-2007 [facility] CONTUSION [facility] OF EYE 56547 OSTEOARTHRO 10-30-2007 [facility] UNSPEC HOSPITAL WHETHER GEN/LOC UNSPEC SITE 99366 UNSPECIFIED 10-30-2007 [facility] ARTHROPATHY SITE UNSPECIFIED 44176 OTHER&UNSPE 10-30-2007 [facility] DISC HOSPITAL DISORDER UNSPEC REGION V571 OTHER 10-30-2007 [facility] PHYSICAL HOSPITAL THERAPY Medications Na ND [...] 17 17 90 FA 30 0 13 MS [address] CA UG PS UL E LO 45 07 08 30 30 00 SO Ac RA 80 -2 -1 .0 00 PE ti TA 20 6- 8- 00 00 RS ve DI 65 20 20 56 NE 08 17 17 90 FA 7 14 MS [address] UG TA BL ET ME 59 07 08 21 6 00 SO Ac TH 74 -2 -1 .0 00 PE ti YL 60 6- 8- 00 00 RS ve AZ 00 20 20 56 ED 10 17 17 90 FA NI 3 15 MS SO LY LO NE DR 4 UG MG DO SE PK PH 51 06 07 90 30 00 SO Ac EN 67 -1 -0 .0 00 PE ti YT 24 3- 7- 00 00 RS ve OI 11 20 20 56 N 10 17 17 59 FA SO 3 13 MS D LY EX T DR 10 UG 0 MG CA P FE 68 05 06 30 30 00 SO Ac NO 18 -0 -0 .0 00 PE ti FI 00 9- 2- 00 00 RS ve BR 36 20 20 56 AT 20 17 17 32 FA E 9 89 MS [address] LONG TA BL ET PA 65 05 06 30 30 00 SO Ac NT 86 -0 -0 .0 00 PE ti OP 20 9- 2- 00 00 RS ve RA 56 20 20 56 ZO 09 17 17 32 FA LE 0 90 MS LY SO D DR DR LONG 40 MG TA B PH 51 05 06 90 30 00 SO Ac EN 67 -0 -0 .0 00 PE ti YT 24 9- 2- 00 00 RS ve OI 11 20 20 56 N 10 17 17 32 FA SO 3 91 MS D LY EX T DR 10 UG 0 MG CA P AV 00 07 07 0 [address] Ac EL 08 -1 -1 .0 PE 83 ON ti OX 51 1- 1- 00 RS 11 E ve 73 20 20 DI 40 30 11 11 FA XI 0 1 MS E MG LY D TA DR BL UG ET AZ 00 07 07 0 [address] Ac ED 59 -1 -1 .0 PE 83 ON ti NI 15 1- 1- 00 RS 13 E ve SO 44 20 20 DI NE 20 11 11 FA XI 5 MS E [address] LONG [...] MP SK AN US Y IN C AZ 00 02 02 30 12 HO 10 [...] D CO MP AN Y IN C AZ 00 01 01 40 16 HO 10 [...] CA Y PS IN UL C E AZ 00 11 11 15 5 HO 10 [...] 11 [address] Ac AZ 57 -1 -1 .0 PK 12 ON [...] 0 IN MG C TA BL ET AZ 61 09 09 00 5. 24 WA [...] 5 UG NE T CO IN C AZ 00 05 06 00 13 32 HO [...] 20 08 09 FA JA SO 3 MS NE D LY T EX T DR 10 UG 0 MG CA P CY 59 11 12 00 90 30 SO 29 FL Ac CL 74 -1 -0 .0 PE 87 IN ti OB 60 8- 4- 00 RS 38 CH ve EN 17 20 20 UM ZA 71 08 08 FA AZ 0 MS EL IN LY LE E N 10 DR J UG MG TA BL ET BA 00 08 11 01 60 30 SO 29 TA Ac CL 83 -2 -0 .0 PE 18 MA ti OF 21 7- 7- 00 RS 01 RE ve EN 02 20 20 N 45 08 08 FA JA 10 0 MS NE LY T MG TA UG BL ET PH 62 08 09 01 27 30 SO 29 No Ac EN 75 -2 -2 0. PE 12 t ti YT 60 0- 6- 00 RS 63 Av ve OI 40 20 20 0 ai N 20 08 08 FA la SO 3 MS bl D LY e EX T DR 10 UG 0 MG CA P RO 00 09 09 00 30 30 SO 29 No Ac PI 37 -1 -2 .0 PE 37 t ti NI 85 9- 6- 00 RS 88 Av ve RO 55 20 20 ai LE 00 08 08 FA la 1 MS bl HC LY e L 0. 5 UG MG TA BL ET AZ 00 08 09 00 6. 15 SO 29 No Ac OV 08 -2 -1 70 PE 18 t ti EN 51 7- 1- 0 RS 02 Av ve TI 13 20 20 ai L 20 08 08 FA la HF 1 MS bl A LY e 90 DR T[place] UG G IN BOLDEN LE R BA 00 08 09 00 60 30 SO 29 No Ac CL 83 -2 -1 .0 PE 18 t ti OF 21 7- 1- 00 RS 01 Av ve EN 02 20 20 ai 45 08 08 FA la 10 0 MS bl LY e MG DR TA UG BL ET GARCIA 00 08 08 00 20 10 SO 29 No Ac LF 60 -2 -2 .0 PE 12 t ti AM 35 0- 8- 00 RS 08 Av ve ET 78 20 20 ai HO 12 08 08 FA la XA 8 MS bl ZO LY e LE -T MP UG DS TA BL ET PH 62 08 08 00 27 30 SO 29 No Ac EN 75 -2 -2 0. PE 12 t ti YT 60 0- 8- 00 RS 63 Av ve OI 40 20 20 0 ai N 20 08 08 FA la SO 3 MS bl D LY e EX T DR 10 UG 0 MG CA P TR 65 08 08 00 30 7 SO 29 No Ac AM 16 -2 -2 .0 PE 12 t ti AD 20 0- 8- 00 RS 09 Av ve OL 62 20 20 ai 71 08 08 FA la HC 1 MS bl L LY e 50 DR MG UG TA BL ET CY 59 08 08 00 90 30 SO 29 No Ac CL 74 -2 -2 .0 PE 12 t ti OB 60 1- 8- 00 RS 92 Av ve EN 17 20 20 ai ZA 71 08 08 FA la AZ 0 MS bl IN LY e E 10 DR UG MG TA BL ET 62 07 07 00 30 30 SO 28 No Ac 79 -0 -1 .0 PE 77 t ti 40 3- 7- 00 RS 91 Av ve 75 20 20 ai 00 08 08 FA la 1 MS bl LY e DR UG 63 05 07 01 60 30 SO 28 No Ac 85 -2 -0 .0 PE 49 t ti 70 3- 3- 00 RS 63 Av ve 11 20 20 ai 13 08 08 FA la 3 MS bl LY e DR UG CY 59 03 07 01 90 30 SO 27 No Ac CL 74 -2 -0 .0 PE 96 t ti OB 60 2- 3- 00 RS 77 Av ve EN 17 20 20 ai ZA 71 08 08 FA la AZ 0 MS bl IN LY e E 10 DR UG MG TA BL ET 63 05 06 00 60 30 SO 28 No Ac 85 -2 -0 .0 PE 49 t ti 70 3- 5- 00 RS 63 Av ve 11 20 20 ai 13 08 08 FA la 3 MS bl LY e DR UG TO 61 [...] ai 13 08 08 FA la 3 MS bl LY e DR UG CY 59 03 04 00 90 30 SO 27 No Ac CL 74 -2 -1 .0 PE 96 t ti OB 60 2- 0- 00 RS 77 Av ve EN 17 20 20 ai ZA 71 08 08 FA la AZ 0 MS bl IN LY e E 10 DR UG MG TA BL ET PH 62 05 04 05 90 30 SO 25 No Ac EN 75 -2 -0 .0 PE 23 t ti YT 60 3- 7- 00 RS 85 Av ve OI 40 20 20 ai N 20 07 08 FA la SO 3 MS bl D LY e EX T DR 10 UG 0 MG CA P Encounters Encounter Start End Date Code Location Performer Type Date [facility] - 7 7 [facility] R[facility] - 7 7 [facility] [address] [facility]JAN - 1 1 [facility] - 0 0 [facility] - 8 8 [facility] - 8 8 [facility] - 8 8 [facility] - 8 8 [facility] - 8 8 [facility] - 8 8 [facility] RAJAN - 8 8 [facility] RAJAN - 8 8 [facility]
--- OUTSIDE RECORDS SUMMARY | 2017-06-10 11:45 | External Medical Summary Rpt | CCD ---
Demographics Preferred Language Mauritanian Marital Status Unknown Church Affiliation Unknown Race Unknown Ethnic Group Unknown Author Author , RAYSA TABARES Address Unknown Phone Immunization No patient found.
--- OUTSIDE RECORDS SUMMARY | 2017-06-10 11:45 | External Medical Summary Rpt | CCD ---
Demographics Preferred Language Armenian Marital Status Unknown Scientologist Affiliation Unknown Race Unknown Ethnic Group Unknown Author Author , RAYSA TABARES Address Unknown Phone Immunization No patient found.
--- OUTSIDE RECORDS SUMMARY | 2017-06-10 11:46 | External Medical Summary Rpt ---
Author Author RAYSA Schultz, [employer] Organization [employer] Address Unknown Phone Unavailable Results Comprehensive metabolic 2000 panel in Serum or Plasma Observa Value Referen Units Interpr Notes Date tion ce etation Range Albumin/G 1.1 - 1.8 No Normal No Jun 04 lobulin informati informati 2016 8:15 [Mass on in on in AM ratio] in source source Serum or data data Plasma Albumin 3.4 - 5.0 gm/dL Normal No Jun 04 [Mass/vol informati 2016 8:15 ume] in on in AM Serum or source Plasma data Alkaline 46 - 116 U/L High No Jun 04 phosphata informati 2016 8:15 se on in AM [Enzymati source c data activity/ volume] in Serum or Plasma Bilirubin 0.2 - 1.0 mg/dL Low No Jun 04 .total informati 2016 8:15 [Mass/vol on in AM ume] in source Serum or data Plasma Urea 7 - 18 mg/dL Normal No Jun 04 nitrogen informati 2016 8:15 [Mass/vol on in AM ume] in source Serum or data Plasma Calcium 8.5 - mg/dL Normal No Jun 04 [Mass/vol 10.1 informati 2016 8:15 ume] in on in AM Serum or source Plasma data Chloride 98 - 107 mmoL/L Normal No Jun 04 [Moles/vo informati 2016 8:15 lume] in on in AM Serum or source Plasma data Carbon 21.0 - mmoL/L Normal No Jun 04 dioxide, 32.0 informati 2016 8:15 total on in AM [Moles/vo source lume] in data Serum or Plasma Creatinin 0.70 - mg/dL Normal No Jun 04 e 1.30 informati 2016 8:15 [Mass/vol on in AM ume] in source Serum or data Plasma Estimated >60 ML/MIN No REFERENCE Jun 04 informati RANGE: 2017 8:15 glomerula on in >60 AM r source ML/MIN/1. filtratio data 73 SQUARE n rate METERSIf (GF this patient is -A merican, then multiply theresult by 1.210. Globulin 1.3 - 3.2 gm/dL Normal No Jun 04 [Mass/vol informati 2016 8:15 ume] in on in AM Serum source data Glucose 74 - 106 mg/dL High No Jun 04 [Mass/vol informati 2016 8:15 ume] in on in AM Serum or source Plasma data Potassium 3.5 - 5.1 mmoL/L Normal No Jun 042016 8:15 [Moles/vo on in AM lume] in source Serum or data Plasma Sodium 136 - 145 mmoL/L Normal No Jun 04 [Moles/vo informati 2016 8:15 lume] in on in AM Serum or source Plasma data Aspartate 15 - 37 U/L Normal No Jun 042016 8:15 aminotran on in AM sferase source [Enzymati data c activity/ volume] in Serum or Plasma Alanine 12 - 78 U/L Normal No Jun 04 aminotran 2016 8:15 sferase on in AM [Enzymati source c data activity/ volume] in Serum or Plasma Protein 6.4 - 8.2 gm/dL Normal No Jun 04 [Mass/vol informati 2016 8:15 ume] in on in AM Serum or source Plasma data Phenytoin [Mass/volume] in Serum or Plasma Observa Value Referen Units Interpr Notes Date tion ce etation Range Phenytoin 10 - 20 ug/ml Low No Jun 042016 8:15 [Mass/vol on in AM ume] in source Serum or data Plasma CBC W Auto Differential panel in Blood Observa Value Referen Units Interpr Notes Date tion ce etation Range Basophils 0 - 0.2 K/MM3 Normal No Jun 042016 8:15 [#/volume on in AM ] in source Blood by data Automated count Basophils 0.1 - 2.0 % Normal No Jun 04 informati 2016 8:15 leukocyte on in AM s in source Blood by data Automated count Eosinophi 0.0 - 0.4 K/mm3 Normal No Jun 04 ls informati 2016 8:15 [#/volume on in AM ] in source Blood by data Automated count Eosinophi 0.1 - % Normal No Jun 04 ls/100 12.0 informati 2016 8:15 leukocyte on in AM s in source Blood by data Automated count Granulocy 1.3 - 8.0 K/mm3 Normal No Jun 04 kristin informati 2016 8:15 [#/volume on in AM ] in source Blood by data Automated count Granulocy 37.0 - % Normal No Jun 04 kristin/100 80.0 informati 2016 8:15 leukocyte on in AM s in source Blood by data Automated count Hematocri 42.0 - % Low No Jun 04 t [Volume 52.0 informati 2016 8:15 on in AM Fraction] source of Blood data Hemoglobi 14.1 - g/dL Normal No Jun 04 n 18.0 informati 2016 8:15 [Mass/vol on in AM ume] in source Blood data Lymphocyt 0.7 - 4.5 K/mm3 Normal No Jun 04 es informati 2016 8:15 [#/volume on in AM ] in source Unspecifi data ed specimen by Automated count Lymphocyt 10 - 50 % Normal No Jun 04 es informati 2016 8:15 [#/volume on in AM ] in source Unspecifi data ed specimen by Automated count Erythrocy 27 - 31.2 pg Normal No Jun 04 te mean informati 2016 8:15 corpuscul on in AM ar source hemoglobi data n [Entitic mass] Erythrocy 31.8 - g/dl Normal No Jun 04 te mean 35.4 informati 2016 8:15 corpuscul on in AM ar source hemoglobi data n concentra tion [Mass/vol ume] by Automated count Erythrocy 82.2 - fl Normal No Jun 04 te mean 97.8 informati 2016 8:15 corpuscul on in AM ar volume source [Entitic data volume] by Automated count Monocytes 0.1 - 1.0 K/mm3 Normal No Jun 04 informati 2016 8:15 [#/volume on in AM ] in source Blood by data Automated count Monocytes 1.7 - 9.3 % Normal No Jun 04 / informati 2016 8:15 leukocyte on in AM s in source Blood by data Automated count Platelet 7.4 - fl Normal No Jun 04 mean 10.4 informati 2016 8:15 volume on in AM [Entitic source volume] data in Blood by Automated count Platelets 142 - 424 K/mm3 Normal No Jun 04 informati 2016 8:15 [#/volume on in AM ] in source Blood data Erythrocy 4.6 - 6.2 M/mm3 Normal No Jun 04 kristin informati 2016 8:15 [#/volume on in AM ] in source Amniotic data fluid Erythrocy 11.5 - % Normal No Jun 04 te 17.5 informati 2016 8:15 distribut on in AM ion width source [Entitic data volume] by Automated count Leukocyte 4.8 - K/MM3 Low No Jun 04 s 10.8 informati 2016 8:15 [#/volume on in AM ] in source Blood data Comprehensive metabolic 2000 panel in Serum or Plasma Observa Value Referen Units Interpr Notes Date tion ce etation Range Albumin/G 1.1 - 1.8 No Low No Feb 11 lobulin informati informati 2016 8:15 [Mass on in on in AM ratio] in source source Serum or data data Plasma Albumin 3.4 - 5.0 gm/dL Normal No Feb 11 [Mass/vol informati 2016 8:15 ume] in on in AM Serum or source Plasma data Alkaline 46 - 116 U/L High No Feb 11 phosphata informati 2016 8:15 se on in AM [Enzymati source c data activity/ volume] in Serum or Plasma Bilirubin 0.2 - 1.0 mg/dL Normal No Feb 11 .total informati 2016 8:15 [Mass/vol on in AM ume] in source Serum or data Plasma Urea 7 - 18 mg/dL Normal No Feb 11 nitrogen informati 2016 8:15 [Mass/vol on in AM ume] in source Serum or data Plasma Calcium 8.5 - mg/dL Normal No Feb 11 [Mass/vol 10.1 informati 2016 8:15 ume] in on in AM Serum or source Plasma data Chloride 98 - 107 mmoL/L Normal No Feb 11 [Moles/vo informati 2016 8:15 lume] in on in AM Serum or source Plasma data Carbon 21.0 - mmoL/L Normal No Feb 11 dioxide, 32.0 informati 2016 8:15 total on in AM [Moles/vo source lume] in data Serum or Plasma Creatinin 0.70 - mg/dL Normal No Feb 11 e 1.30 informati 2016 8:15 [Mass/vol on in AM ume] in source Serum or data Plasma Estimated >60 ML/MIN No REFERENCE Feb 11 informati RANGE: 2017 8:15 glomerula on in >60 AM r source ML/MIN/1. filtratio data 73 SQUARE n rate METERSIf (GF this patient is -A merican, then multiply theresult by 1.210. Globulin 1.3 - 3.2 gm/dL High No Feb 11 [Mass/vol informati 2016 8:15 ume] in on in AM Serum source data Glucose 74 - 106 mg/dL Normal No Feb 11 [Mass/vol informati 2016 8:15 ume] in on in AM Serum or source Plasma data Potassium 3.5 - 5.1 mmoL/L Normal No Feb 11 informati 2016 8:15 [Moles/vo on in AM lume] in source Serum or data Plasma Sodium 136 - 145 mmoL/L Normal No Feb 11 [Moles/vo informati 2016 8:15 lume] in on in AM Serum or source Plasma data Aspartate 15 - 37 U/L Normal No Feb 112016 8:15 aminotran on in AM sferase source [Enzymati data c activity/ volume] in Serum or Plasma Alanine 12 - 78 U/L Normal No Feb 11 aminotran ati 2016 8:15 sferase on in AM [Enzymati source c data activity/ volume] in Serum or Plasma Protein 6.4 - 8.2 gm/dL Normal No Feb 11 [Mass/vol informati 2016 8:15 ume] in on in AM Serum or source Plasma data Lipid 1996 panel in Serum or Plasma Observa Value Referen Units Interpr Notes Date tion ce etation Range Cholester < 200 mg/dL High No Feb 11 ol ati 2016 8:15 [Moles/vo on in AM lume] in source Unspecifi data ed specimen Cholester 40 - 60 MG/DL Low No Feb 11 ol in HDL informati 2016 8:15 on in AM [Mass/vol source ume] in data Serum or Plasma Cholester 0 - 130 mg/dL Normal No Feb 11 ol in LDL informati 2016 8:15 on in AM [Mass/vol source ume] in data Serum or Plasma by arley on Triglycer 30 - 200 mg/dL High No Feb 11 mariana informati 2016 8:15 [Moles/vo on in AM lume] in source Serum or data Plasma Cholester 0 - 40 No High No Feb 11 ol in informati informati 2016 8:15 VLDL on in on in AM [Mass/vol source source ume] in data data Serum or Plasma Phenytoin [Mass/volume] in Serum or Plasma Observa Value Referen Units Interpr Notes Date tion ce etation Range Phenytoin 10 - 20 ug/ml Low No Feb 11 informati 2016 8:15 [Mass/vol on in AM ume] in source Serum or data Plasma CBC W Auto Differential panel in Blood Observa Value Referen Units Interpr Notes Date tion ce etation Range Basophils 0 - 0.2 K/MM3 Normal No Feb 11 informati 2016 8:15 [#/volume on in AM ] in source Blood by data Automated count Basophils 0.1 - 2.0 % Normal No Feb 11 informati 2016 8:15 leukocyte on in AM s in source Blood by data Automated count Eosinophi 0.0 - 0.4 K/mm3 Normal No Feb 11 ls informati 2016 8:15 [#/volume on in AM ] in source Blood by data Automated count Eosinophi 0.1 - % Normal No Feb 11 ls/100 12.0 informati 2016 8:15 leukocyte on in AM s in source Blood by data Automated count Granulocy 1.3 - 8.0 K/mm3 Normal No Feb 11 kristin ati 2016 8:15 [#/volume on in AM ] in source Blood by data Automated count Granulocy 37.0 - % Normal No Feb 11 kristin/100 80.0 informati 2016 8:15 leukocyte on in AM s in source Blood by data Automated count Hematocri 42.0 - % Normal No Feb 11 t [Volume 52.0 informati 2016 8:15 on in AM Fraction] source of Blood data Hemoglobi 14.1 - g/dL Normal No Feb 11 n 18.0 informati 2016 8:15 [Mass/vol on in AM ume] in source Blood data Lymphocyt 0.7 - 4.5 K/mm3 Normal No Feb 11 es informati 2016 8:15 [#/volume on in AM ] in source Unspecifi data ed specimen by Automated count Lymphocyt 10 - 50 % Normal No Feb 11 es informati 2016 8:15 [#/volume on in AM ] in source Unspecifi data ed specimen by Automated count Erythrocy 27 - 31.2 pg Normal No Feb 11 te mean informati 2016 8:15 corpuscul on in AM ar source hemoglobi data n [Entitic mass] Erythrocy 31.8 - g/dl Normal No Franklin 10 te mean 35.4 informati 2016 8:15 corpuscul on in AM ar source hemoglobi data n concentra tion [Mass/vol ume] by Automated count Erythrocy 82.2 - fl Normal No Feb 11 te mean 97.8 2016 8:15 corpuscul on in AM ar volume source [Entitic data volume] by Automated count Monocytes 0.1 - 1.0 K/mm3 Normal No Feb 11 inform2016 8:15 [#/volume on in AM ] in source Blood by data Automated count Monocytes 1.7 - 9.3 % Normal No Feb 10 /100 informati 2016 8:15 leukocyte on in AM s in source Blood by data Automated count Platelet 7.4 - fl Normal No Feb 11 mean 10.4 informati 2016 8:15 volume on in AM [Entitic source volume] data in Blood by Automated count Platelets 142 - 424 K/mm3 Normal No Feb 112016 8:15 [#/volume on in AM ] in source Blood data Erythrocy 4.6 - 6.2 M/mm3 Normal No Feb 11 kristin 2016 8:15 [#/volume on in AM ] in source Amniotic data fluid Erythrocy 11.5 - % Normal No Feb 11 te 17.5 ati 2016 8:15 distribut on in AM ion width source [Entitic data volume] by Automated count Leukocyte 4.8 - K/MM3 Low No Feb 11 s 10.8 informati 2016 8:15 [#/volume on in AM ] in source Blood data Comprehensive metabolic 2000 panel in Serum or Plasma Observa Value Referen Units Interpr Notes Date tion ce etation Range Albumin/G 1.1 - 1.8 No Low No Jan 14 lobulin informati informati 2016 [Mass on in on in 10:00 AM ratio] in source source Serum or data data Plasma Albumin 3.4 - 5.0 gm/dL Normal No Jan 14 [Mass/vol informati 2016 ume] in on in 10:00 AM Serum or source Plasma data Alkaline 46 - 116 U/L High No Jan 14 phosphata inform2016 se on in 10:00 AM [Enzymati source c data activity/ volume] in Serum or Plasma Bilirubin 0.2 - 1.0 mg/dL Normal No Jan 14 .total inform2016 [Mass/vol on in 10:00 AM ume] in source Serum or data Plasma Urea 7 - 18 mg/dL High No Jan 12 nitrogen informati 2017 [Mass/vol on in 10:00 AM ume] in source Serum or data Plasma Calcium 8.5 - mg/dL Normal No Jan 14 [Mass/vol 10.1 informati 2016 ume] in on in 10:00 AM Serum or source Plasma data Chloride 98 - 107 mmoL/L Normal No Jan 12 [Moles/vo informati 2017 lume] in on in 10:00 AM Serum or source Plasma data Carbon 21.0 - mmoL/L Normal No Jan 12 dioxide, 32.0 informati 2017 total on in 10:00 AM [Moles/vo source lume] in data Serum or Plasma Creatinin 0.70 - mg/dL Normal No Jan 14 e 1.30 informati 2016 [Mass/vol on in 10:00 AM ume] in source Serum or data Plasma Estimated >60 ML/MIN No REFERENCE Jan 14 informati RANGE: 2017 glomerula on in >60 10:00 AM r source ML/MIN/1. filtratio data 73 SQUARE n rate METERSIf (GF this patient is -A merican, then multiply theresult by 1.210. Globulin 1.3 - 3.2 gm/dL High No Jan 14 [Mass/vol informati 2016 ume] in on in 10:00 AM Serum source data Glucose 74 - 106 mg/dL High No Jan 14 [Mass/vol informati 2017 ume] in on in 10:00 AM Serum or source Plasma data Potassium 3.5 - 5.1 mmoL/L Normal No Jan 14 inform2016 [Moles/vo on in 10:00 AM lume] in source Serum or data Plasma Sodium 136 - 145 mmoL/L Normal No Jan 14 [Moles/vo informati 2017 lume] in on in 10:00 AM Serum or source Plasma data Aspartate 15 - 37 U/L Normal No Jan 14 informati 2016 aminotran on in 10:00 AM sferase source [Enzymati data c activity/ volume] in Serum or Plasma Alanine 12 - 78 U/L Normal No Jan 14 aminotran informati 2016 sferase on in 10:00 AM [Enzymati source c data activity/ volume] in Serum or Plasma Protein 6.4 - 8.2 gm/dL Normal No Jan 14 [Mass/vol informati 2017 ume] in on in 10:00 AM Serum or source Plasma data Phenytoin [Mass/volume] in Serum or Plasma Observa Value Referen Units Interpr Notes Date tion ce etation Range Phenytoin 10 - 20 ug/ml Low No Jan 14 inform2016 [Mass/vol on in 10:00 AM ume] in source Serum or data Plasma CBC W Auto Differential panel in Blood Observa Value Referen Units Interpr Notes Date tion ce etation Range Basophils 0 - 0.2 K/MM3 Normal No Jan 14 inform2016 [#/volume on in 10:00 AM ] in source Blood by data Automated count Basophils 0.1 - 2.0 % Normal No Jan 14 /100 inform2016 leukocyte on in 10:00 AM s in source Blood by data Automated count Eosinophi 0.0 - 0.4 K/mm3 Normal No Jan 14 ls informati 2016 [#/volume on in 10:00 AM ] in source Blood by data Automated count Eosinophi 0.1 - % Normal No Jan 14 ls/100 12.0 inform2016 leukocyte on in 10:00 AM s in source Blood by data Automated count Granulocy 1.3 - 8.0 K/mm3 Normal No Jan 14 kristin 2016 [#/volume on in 10:00 AM ] in source Blood by data Automated count Granulocy 37.0 - % Normal No Jan 14 kristin/100 80.0 2016 leukocyte on in 10:00 AM s in source Blood by data Automated count Hematocri 42.0 - % Low No Jan 14 t [Volume 52.0 inform2016 on in 10:00 AM Fraction] source of Blood data Hemoglobi 14.1 - g/dL Low No Jan 14 n 18.0 inform2016 [Mass/vol on in 10:00 AM ume] in source Blood data Lymphocyt 0.7 - 4.5 K/mm3 Normal No Jan 14 es inform2016 [#/volume on in 10:00 AM ] in source Unspecifi data ed specimen by Automated count Lymphocyt 10 - 50 % Normal No Jan 14 es inform2016 [#/volume on in 10:00 AM ] in source Unspecifi data ed specimen by Automated count Erythrocy 27 - 31.2 pg Normal No Jan 14 te mean inform2016 corpuscul on in 10:00 AM ar source hemoglobi data n [Entitic mass] Erythrocy 31.8 - g/dl Normal No Wilber 12 te mean 35.4 inform2016 corpuscul on in 10:00 AM ar source hemoglobi data n concentra tion [Mass/vol ume] by Automated count Erythrocy 82.2 - fl Normal No Jan 12 te mean 97.8 inform2016 corpuscul on in 10:00 AM ar volume source [Entitic data volume] by Automated count Monocytes 0.1 - 1.0 K/mm3 Normal No Jan 12 inform2016 [#/volume on in 10:00 AM ] in source Blood by data Automated count Monocytes 1.7 - 9.3 % Normal No Jan 12 /100 informati 2017 leukocyte on in 10:00 AM s in source Blood by data Automated count Platelet 7.4 - fl Normal No Jan 12 mean 10.4 inform2016 volume on in 10:00 AM [Entitic source volume] data in Blood by Automated count Platelets 142 - 424 K/mm3 Normal No Jan 12 inform2016 [#/volume on in 10:00 AM ] in source Blood data Erythrocy 4.6 - 6.2 M/mm3 Low No Jan 12 kristin informati 2016 [#/volume on in 10:00 AM ] in source Amniotic data fluid Erythrocy 11.5 - % Normal No Jan 12 te 17.5 ati 2016 distribut on in 10:00 AM ion width source [Entitic data volume] by Automated count Leukocyte 4.8 - K/MM3 Low No Jan 12 s 10.8 informati 2016 [#/volume on in 10:00 AM ] in source Blood data
--- OUTSIDE RECORDS SUMMARY | 2017-06-10 11:46 | External Medical Summary Rpt ---
[...] ume] in data Serum or Plasma by arely on Triglycer 30 - 200 mg/dL High [...]
[2017-06-10] MEDS ORDERED: NAPROXEN SODIU500 MG PO (12:03)
--- NOTE | 2017-06-10 12:04 | Emergency Room Report ---
History of Present Illness Time Seen by MD Silver2 Presenting Problem in Triage Pt arrived:Walked Presenting Problem:PT C/O PAIN FROM ELBOW DOWN WITH SOME NUMBNESS IN HIS FINGERTIPS IN THE RIGHT ARM. Onset of symptoms date/time:/ or onset unknown for:MEDICAL HX UNKNOWN Treatment Prior to Arrival: INTERVENTIONAL NURSE Provided by: Sepsis Risk Assessment: Temp: 98.2 B/P: 160/90 MAP: 113 Pulse: 85 Resp: 16 Recent fever? N Clinical Suspician of Infection? N Mental Status: 1 - Regular (Normal Baseline) Sepsis Risk:Low Sepsis Risk Have you (or family members/close friends) recently traveled outside the [place]? N If Yes, where/when: Have you had exposure to infectious disease within the past month? N TB? Other? Specify: chronic pain and numbness to hand, radiates to forearm; does welding, rides motorcycles, fingers on R go numb when doing these activities. 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 Is RHD. ALLERGIES Coded Allergies: Penicillins (Mild, 06/10/17) acetaminophen (From NORCO) (Mild, 06/10/17) codeine (From TYLENOL-CODEINE) (Mild, 06/10/17) hydrocodone (From NORCO) (Mild, 06/10/17) morphine (Mild, 06/10/17) Home Medications Reported Medications Methadone Hcl (Methadone) 10 MG PO DAILY #150 PHENYTOIN SODIUM EXTENDED (Phenytoin Sodium Extended) 100 MG PO DAILY #15 History Medical History General CAD? No Angina: No AL: No Hypertension? No Hyperlipidemia? No CHF? No DVT? No PE? No COPD? No Asthma? No Anemia? No GERD? No Gastric ulcers? No GI Bleed? No Hernia? No Thyroid Problems? No Hypothyroidism? No CVA? No Seizures? No Diabetes? No Renal Insuffiency? No End Stage Renal Disease? No UTI? No Stones? No BPH? No GB Disease: No Nephritic Syndrome? No Asplenia? No Hepatitis? No Sickle Cell Disease? No Arthritis? No Migraines? No Cataracts? No Glaucoma? No MRSA? No HIV? No TB? No Anxiety? No Depression? No Cancer? No More? No Immunization Hx DT/Tetanus 1-4 Years Ago Surgical Hx Previous Surgery?N Social History Smoking Hx Smoker: Former Smoker Tobacco: No Alcohol Alcohol: No Review of Systems All Other Systems Reviewed and Negative Musculoskeletal see HPI Psychiatric/Neurological see HPI (hx chronic neck/back problems) Physical Exam Vital Signs Vital Signs Date Time Temp Pulse Resp B/P Pulse O2 O2 Flow FiO2 Ox Delivery Rate 06/10 1106 98.2 85 16 160/90 98 General Appearance normal appearance, WD/WN, no apparent distress Eye Exam - bilateral eye normal exam, bilateral eye PERRL, bilateral eye EOMI Neck normal inspection, non-tender, supple, full range of motion Respiratory Status Yes: trachea midline, chest symmetrical, non tender chest. No: respiratory distress, tender on palpation, use of accessory muscles, pain on inspiration, pain on expiration, productive cough, non productive cough. Lung Sounds bilateral: normal breath sounds, lungs clear. Cardiovascular normal exam, regular rate/rhythm, no peripheral edema, no gallop, no JVD, no murmur, no rub, normal peripheral pulses Peripheral Pulses Pulses normal Yes (radial) Extremities normal range of motion, normal inspection, normal capillary refill, pos Tinel's, pos Phalen's, loss of sensation to light touch, R hand, over median nerve distribution, c/w CTS. No discoloration of limb; has FROM. Brisk c/r, warm and well perfused digits and hand. Multiple tattoos. Strength 5 Upper Ext (L), 5 Upper Ext (R) Neurologic alert, normal exam, no motor/sensory deficits (sens def see above R hand) Glascow Coma Scale Glascow Coma Scale Response Value EYE response: 4 Spontaneously 4 MOTOR response: 6 OBEYS 6 VERBAL response: 5 Oriented & Converses 5 Total 15 Skin intact, normal color Medical Decision Making LABS/Meds/Orders Pt receiving controlled substance in ED? No Results/Orders Orders Procedure Date/time Status STABILIZE JOINT 06/10 1158 Active Departure Departure Time of Disposition 1201 Disposition DC Home or Self Care(routine) Clinical Impression Primary Impression: CTS (carpal tunnel syndrome) Qualifiers: Laterality: right Qualified Code: G56.01 - Carpal tunnel syndrome, right upper limb Condition STABLE Referrals Hoang SINCLAIR,HUANG Granados (Family) CARIDAD SINCLAIR, VALDO MASTERSON Patient Instructions Carpal Tunnel Syndrome Additional Instructions See orthopedist Dr. Peterson or Dr. Bolton for follow up; wrist splint for comfort; Rx Naproxen. Discharge Counseling Counseled pt/family regarding diagnosis, medications/RX, home care, follow up needs Prescriptions Current Visit Scripts NAPROXEN (NAPROXEN 500MG TAB) 500 MG PO BID #20 TAB ED Critical Care Critical Care No at 1202
[2017-06-10 12:11] VITALS: BP 160/90
== END 2017-06-10 12:12 | disposition home or self-care (01) ==
LOC: ER 11:03
PROC: 2W3CX1Z Immobilization of Right Lower Arm using Splint (ICD-10-PCS; principal; 2017-06-10)
DX: G56.01 Carpal tunnel syndrome, right upper limb (principal); Z88.0 Allergy status to penicillin; Z88.6 Allergy status to analgesic agent; Z87.891 Personal history of nicotine dependence

== ENCOUNTER → 2017-07-12 | Outpatient (CLI) | payer MEDICAID ==
[~2017-07-12] MED LIST: AVPAK EXTENDED100 MG PO; METHADONE 10 MG10 MG PO; NAPROXEN SODIU500 MG PO
[2017-07-12 13:33] LABS: HEMOGLOBIN 13.7 g/dL (14.1-18.0); LYMPH # 1.1 K/mm3 (0.7-4.5); LYMPH % 27.2 % (10-50)
[2017-07-12 14:50] LABS: BUN 15 mg/dL (7-18)
[2017-07-12 14:51] LABS: GFR (ESTIMATED) 58 ML/MIN (>60)
== END ==
LOC: CARL-LAB 09:04
PROVIDERS: Nurse Practitioner Family
DX: R56.9 Unspecified convulsions (principal); Z51.81 Encounter for therapeutic drug level monitoring